=== PATIENT | female | born 1995 | race Caucasian/White ===

== ENCOUNTER 2020-03-05 07:13 | Inpatient (IN) ==
[2020-03-05] MEDS ORDERED: OXYTOCIN 30 UNITS/500 ML BAG IV PRN ×2 (07:32)
--- NOTE | 2020-03-05 07:36 | History & Physical Report ---
Date of Service March 05, 2020 Assessment & Plan (1) Prolonged , antepartum: Induction for post dates. GBS neg. Start Pitocin. 7-8 lbs History of Present Illness Primary Care Provider: NO PCP 41 week induction who received cervical winter last pm. Winter fell out spontaneously. GBS - Obesity in Allergies Allergy/AdvReac Type Severity Reaction Status Date / Time No Known Allergies Allergy Mild Verified 03/04/20 19:08 Home Medications Home Medications Medication Instructions Recorded Confirmed Type prenat.vits,august,aif-ftpb-tsldg 1 tab PO DAILY 10/14/19 03/05/20 History Patient History Medical History Encounter for anatomic survey Varicella vaccine Surgical History S/P wisdom tooth extraction Family History (Updated 10/14/19 @ 08:01 by Mary Jo Bertrand) Father Hypertension Grandmother (Maternal) Diabetes Grandfather No problems noted. Grandmother (Paternal) Stroke Grandfather (Paternal) Diabetes Social History (Updated 10/14/19 @ 09:44 by Mary Jo Bertrand) Preferred Language: Finnish marital status: Single marital status details: FOB: Irvin Stroud (25) [phone] Current Living Situation: Significant Other Current Living Situation Comment: lives with FOB, 1dog, and 1 cat. FOB to change litter. current occupational status: employed current occupation: insurance representative @ [employer] Feels Safe at Home: Yes Smoking Status: Never smoker Hx Alcohol Use: No Hx Substance Use: No Physical Exam Constitutional: WD/WN, vitals as above Respiratory: normal respiratory effort, lungs clear to auscultation Cardiovascular: RRR, no murmur, no edema Genitourinary: Manual OB Exam: + cervical dilation 4 cm, + cervical effacement 70% and + station -2 OB Exam Monitor Tracing: + external FHT monitor used Results & Data Vital Signs (Past 12 Hours) Vital Signs Temp Pulse Resp BP 03/05/20 07:19 98.6 F 95 H 20 126/69 Coding Level of Care Code None Diagnoses Prolonged , antepartum O48.1
[2020-03-05 07:58] LABS: Hematocrit (blood only) 35.1 % (37-47); Hemoglobin 11.5 g/dL (12.0-16.0); Mean Corpuscular Volume 85.4 fL (80-100); Mean Platelet Volume 12.1 fL (7.4-10.4); Platelet Count 172 K/uL (130-400); RDW Coefficient of Variation 14.2 % (11.5-14.5); RDW Standard Deviation 43.8 fL (36.4-46.3); Red Blood Count 4.11 M/uL (4.2-5.4); White Blood Count 12.47 K/uL (4.8-10.8)
[2020-03-05] MEDS: LACTATED RINGER'S 1,000 ML IV PRN ×3 (08:01→20:37)
[2020-03-05 08:23] LABS: Mean Corpuscular Hgb Conc 32.8 g/dL (32-36)
[2020-03-05] MEDS: ONDANSETRON INJ 2 MG/ML 2 ML VIAL IV PRN ×2 (11:30→17:07)
[2020-03-05] MEDS ORDERED: fentaNYL citrate 100 MCG/2 ML VIAL ONE ×2 (12:26→21:41)
[2020-03-05] MEDS ORDERED: BUPIVACAINE 0.25% 30 ML VIAL ONE (12:26)
[2020-03-05] MEDS ORDERED: ePHEDrine sulfate 50 MG/ML AMP ONE (12:26)
[2020-03-05] MEDS ORDERED: fentaNYL 2MCG/ML ROPIV 1.25MG/ML 100 ML BAG EPI ONE (12:27)
--- NOTE | 2020-03-05 12:30 | Anesthesiology Consultation ---
Date of Service March 05, 2020 Assessment & Plan Chart Review Chart Review: Acceptable Risk for Labor Epidural ASA ASA2 Proposed Anesthesia Anesthesia Type: Labor Epidural Risk / Benefits Reviewed With: PT / POA / Parent / Guardian, Accepts Plan and Informed Consent Obtained History Height/Weight Height: 5 ft 5 in Weight: 118.841 kg Allergies Allergy/AdvReac Type Severity Reaction Status Date / Time No Known Allergies Allergy Mild Verified 03/04/20 19:08 Medications Home Medications Medication Instructions Recorded Confirmed Last Taken prenat.vits,august,qlo-agqg-mnhiu 1 tab PO DAILY 10/14/19 03/05/20 03/04/20 08:00 Active Medications Generic Name Dose Route Start Last Admin Trade Name Freq PRN Reason Stop Dose Admin Lactated Ringer's 1,000 mls @ 125 mls/hr 03/05/20 07:32 03/05/20 12:22 Lr IV 03/07/20 07:31 999 mls/hr .Q8H PRN Infusion L&D Protocol Protocol Oxytocin 30 units in 500 mls @ 8 mls/hr 03/05/20 07:32 03/05/20 10:15 Pitocin IV 03/07/20 07:31 0.48 units/hr .Q24H PRN 8 mls/hr Labor Induction/Augmentation Titration Protocol 0.48 UNITS/HR Ondansetron HCl 4 mg 03/05/20 11:23 03/05/20 11:30 Zofran IV 04/04/20 11:22 4 mg Q6H PRN Administration Nausea Past Medical History Medical History Encounter for anatomic survey Varicella vaccine Exercise / Class Metabolic Activity II 4-5 Yardwork/Stairs/Walk up hill Past Family History Family History (Updated 10/14/19 @ 08:01 by Mary Jo Bertrand) Father Hypertension Grandmother (Maternal) Diabetes Grandfather No problems noted. Grandmother (Paternal) Stroke Grandfather (Paternal) Diabetes Past Surgical History Surgical History S/P wisdom tooth extraction Past Anesthesia History No Hx of Anesthesia Complications and No Family Hx of Anesthesia Complications History of PONV No Hx of PONV and No Hx of Motion Sickness Social History Smoking Status: Never smoker Do You Dip or Chew Tobacco: No Hx Alcohol Use: No Hx Substance Use: No substance use type: does not use Review of Systems denies fever/cough/ colds/ chest pain/ SOB/ LUAN Constitutional: no fever and no chills Respiratory: no cough and no dyspnea denies LUAN Cardiovascular: no chest pain and no dyspnea on exertion Physical Exam Vital Signs Last Vital Signs Temp 36.9 C 03/05/20 11:51 Pulse 96 H 03/05/20 12:54 Resp 20 03/05/20 11:51 BP 103/55 L 03/05/20 12:53 Pulse Ox 97 03/05/20 12:54 ENMT Mouth: no TMJ abnormality and no dentition abnormality Thyromental Distance: > or= 3.5 Finger Breadths Mallampati Class: II Neck neck extension not limited Respiratory normal respiratory effort; no respiratory distress Auscultation: lungs clear to auscultation bilaterally Cardiovascular Rate/Rhythm: regular rate and regular rhythm Neurologic moves all extremities Psychiatric Orientation: alert and oriented x 3 Testing Laboratory Results 03/05/20 07:42
[2020-03-05] MEDS ORDERED: ePHEDrine sulfate 50 MG/ML AMP IV PRN ×2 (13:12→22:02)
[2020-03-05] MEDS ORDERED: NALOXONE HCL 0.4 MG/1 ML VIAL/CARP IV PRN ×2 (13:12→22:02)
[2020-03-05] MEDS ORDERED: NALBUPHINE HCL INJ 10 MG/ML AMP IV PRN ×2 (13:12→22:02)
[2020-03-05] MEDS ORDERED: fentaNYL 2MCG/ML ROPIV 1.25MG/ML 100 ML BAG EPI PRN (13:12)
[2020-03-05] MEDS ORDERED: ONDANSETRON INJ 2 MG/ML 2 ML VIAL IV PRN ×2 (13:12→22:02)
[2020-03-05] MEDS ORDERED: NALOXONE HCL 1 MG in SODIUM CHLORIDE 0.9% 1000ML 1,000 ML IV PRN ×2 (13:12→22:02)
[2020-03-05] MEDS ORDERED: DiphenhydrAMINE HCL 50 MG/ML VIAL IV PRN ×2 (13:12→22:02)
--- NOTE | 2020-03-05 15:34 | Labor Progress Brief Note ---
Date of Service March 05, 2020 AROM for clear fluid. On pitocin has epidural. Cx 4cm, 70% Results & Data Vital Signs (Past 12 Hours) Vital Signs Temp Pulse Resp BP Pulse Ox 20 15:30 83 119/65 05/18/20 15:29 81 98 05/18/20 15:24 86 98 05/18/20 15:19 88 98 05/18/20 15:14 88 98 05/18/20 15:13 89 122/66 05/18/20 15:09 87 98 05/18/20 15:06 88 123/67 05/18/20 15:04 107 H 99 05/18/20 15:00 98.2 F 20 05/20 14:59 96 H 120/69 97 05/18/20 14:54 93 H 99 05/18/20 14:49 89 98 05/18/20 14:44 88 100 05/18/20 14:43 97 H 126/76 05/18/20 14:40 126 H 94 05/18/20 14:39 102 H 96 05/18/20 14:34 80 97 05/18/20 14:30 83 118/71 05/18/20 14:29 87 98 05/18/20 14:24 95 H 98 05/18/20 14:19 83 97 05/18/20 14:14 88 99 05/18/20 14:13 77 120/68 05/18/20 14:09 81 97 05/18/20 14:04 95 H 98 05/18/20 13:59 85 118/72 98 05/18/20 13:54 103 H 99 05/18/20 13:49 85 96 05/18/20 13:44 82 96 05/18/20 13:43 84 119/65 05/18/20 13:39 90 99 05/18/20 13:34 81 97 05/18/20 13:29 90 98 05/18/20 13:28 86 119/68 05/18/20 13:24 94 H 98 05/18/20 13:19 98 H 97 05/18/20 13:15 87 110/58 L 05/18/20 13:14 86 97 05/18/20 13:13 16 05/18/20 13:09 87 97 05/18/20 13:04 84 97 05/18/20 12:59 87 97 03/05/20 12:57 92 H 104/54 L 03/05/20 12:55 94 H 110/57 L 03/05/20 12:54 96 H 97 03/05/20 12:53 90 103/55 L 03/05/20 12:51 108 H 113/68 03/05/20 12:49 93 H 108/60 97 03/05/20 12:47 93 H 115/57 L 03/05/20 12:45 95 H 130/59 L 03/05/20 12:44 105 H 98 03/05/20 12:42 99 H 137/75 03/05/20 12:39 99 H 99 03/05/20 12:34 102 H 98 03/05/20 12:17 88 122/72 03/05/20 11:51 98.4 F 20 03/05/20 11:17 101 H 127/76 03/05/20 10:02 97 H 16 130/75 03/05/20 09:48 88 20 128/72 03/05/20 09:32 88 20 130/75 20 09:20 90 16 135/76 03/05/20 09:02 85 20 127/76 20 08:46 95 H 18 128/80 0520 08:18 98.6 F 95 H 20 126/69 0520 07:19 98.6 F 95 H 20 126/69 Coding Level of Care Code None
--- NOTE | 2020-03-05 19:16 | Labor Progress Brief Note ---
Date of Service March 05, 2020 Cx still 4, 90% Minimal progress all day from initial check. IUPC placed. Results & Data Vital Signs (Past 12 Hours) Vital Signs Temp Pulse Resp BP Pulse Ox 20 19:09 86 99 05/18/20 19:04 103 H 96 05/18/20 18:59 84 98 05/18/20 18:58 93 H 123/63 05/18/20 18:54 97 H 100 05/18/20 18:49 101 H 100 05/18/20 18:45 92 H 129/79 0518/20 18:44 93 H 99 05/18/20 18:39 96 H 98 05/18/20 18:34 107 H 95 05/18/20 18:30 93 H 18 124/75 0518/20 18:29 90 98 05/18/20 18:28 86 94 05/18/20 18:24 96 H 99 05/18/20 18:19 90 100 05/18/20 18:17 98 H 94 0518/20 18:14 102 H 135/72 99 0518/20 18:09 91 H 98 05/18/20 18:04 94 H 99 05/18/20 18:00 90 20 135/73 0518/20 17:59 92 H 100 05/18/20 17:54 100 H 98 05/18/20 17:49 98 H 98 05/18/20 17:44 106 H 133/80 97 05/18/20 17:39 111 H 96 05/18/20 17:34 121 H 96 05/18/20 17:30 20 05/18/20 17:29 88 133/75 98 05/18/20 17:24 89 100 05/18/20 17:19 93 H 99 05/18/20 17:15 93 H 132/75 05/18/20 17:14 90 100 05/18/20 17:09 95 H 99 05/18/20 17:04 93 H 100 05/18/20 17:00 98.2 F 81 20 131/73 05/18/20 16:59 92 H 100 05/18/20 16:57 88 92 05/18/20 16:54 82 99 05/18/20 16:49 110 H 96 05/18/20 16:44 101 H 112/56 L 99 05/18/20 16:39 93 H 100 05/18/20 16:34 86 100 05/18/20 16:30 92 H 20 110/59 L 05/18/20 16:29 95 H 99 05/18/20 16:24 95 H 100 05/18/20 16:19 93 H 99 05/18/20 16:14 99 H 115/60 98 05/18/20 16:09 88 98 05/18/20 16:04 81 98 05/18/20 16:00 20 05/18/20 15:59 96 H 117/63 97 05/18/20 15:56 81 92 05/18/20 15:54 91 H 99 05/18/20 15:49 88 97 05/18/20 15:44 80 118/71 98 05/18/20 15:39 86 98 05/18/20 15:34 87 97 05/18/20 15:30 83 20 119/65 05/18/20 15:29 81 98 05/18/20 15:24 86 98 05/18/20 15:19 88 98 05/18/20 15:14 88 98 05/18/20 15:13 89 122/66 05/18/20 15:09 87 98 05/18/20 15:06 88 123/67 05/18/20 15:04 107 H 99 05/18/20 15:00 98.2 F 20 05/18/20 14:59 96 H 120/69 97 05/18/20 14:54 93 H 99 05/18/20 14:49 89 98 05/18/20 14:44 88 100 05/18/20 14:43 97 H 126/76 05/18/20 14:40 126 H 94 05/18/20 14:39 102 H 96 05/18/20 14:34 80 97 05/18/20 14:30 83 118/71 05/18/20 14:29 87 98 05/18/20 14:24 95 H 98 05/18/20 14:19 83 97 05/18/20 14:14 88 99 05/18/20 14:13 77 120/68 05/18/20 14:09 81 97 05/18/20 14:04 95 H 98 05/18/20 13:59 85 118/72 98 05/18/20 13:54 103 H 99 05/18/20 13:49 85 96 05/18/20 13:44 82 96 05/18/20 13:43 84 119/65 05/18/20 13:39 90 99 05/18/20 13:34 81 97 05/18/20 13:29 90 98 05/18/20 13:28 86 119/68 05/18/20 13:24 94 H 98 05/18/20 13:19 98 H 97 05/18/20 13:15 87 110/58 L 05/18/20 13:14 86 97 05/18/20 13:13 16 05/18/20 13:09 87 97 05/18/20 13:04 84 97 05/18/20 12:59 87 97 05/18/20 12:57 92 H 104/54 L 05/18/20 12:55 94 H 110/57 L 05/18/20 12:54 96 H 97 05/18/20 12:53 90 103/55 L 05/18/20 12:51 108 H 113/68 05/18/20 12:49 93 H 108/60 97 05/18/20 12:47 93 H 115/57 L 05/18/20 12:45 95 H 130/59 L 05/18/20 12:44 105 H 98 05/18/20 12:42 99 H 137/75 05/18/20 12:39 99 H 99 05/18/20 12:34 102 H 98 05/18/20 12:17 88 122/72 05/18/20 11:51 98.4 F 20 05/18/20 11:17 101 H 127/76 05/18/20 10:02 97 H 16 130/75 05/18/20 09:48 88 20 128/72 05/18/20 09:32 88 20 130/75 05/18/20 09:20 90 16 135/76 05/18/20 09:02 85 20 127/76 05/18/20 08:46 95 H 18 128/80 05/18/20 08:18 98.6 F 95 H 20 126/69 05/18/20 07:19 98.6 F 95 H 20 126/69 Coding Level of Care Code None
--- NOTE | 2020-03-05 19:53 | Labor Progress Brief Note ---
Date of Service March 05, 2020 180-200 MVU with IUPC, CTX frequency, Q1.5-2 min. Adequate and I do not want to increase pitocin more with CTX frequency Results & Data Vital Signs (Past 12 Hours) Vital Signs Temp Pulse Resp BP Pulse Ox 1820 19:49 105 H 99 05/18/20 19:44 99 H 127/64 98 05/18/20 19:39 101 H 98 05/18/20 19:34 106 H 97 05/18/20 19:30 20 05/18/20 19:29 102 H 99 05/18/20 19:28 97 H 138/69 05/18/20 19:24 94 H 100 05/18/20 19:19 98 H 98 05/18/20 19:14 100 H 97 05/18/20 19:09 86 99 05/18/20 19:04 103 H 96 05/18/20 19:01 98.6 F 0518/20 19:00 18 05/18/20 18:59 84 98 05/18/20 18:58 93 H 123/63 0518/20 18:54 97 H 100 05/18/20 18:49 101 H 100 05/18/20 18:45 92 H 129/79 05/18/20 18:44 93 H 99 05/18/20 18:39 96 H 98 05/18/20 18:34 107 H 95 05/18/20 18:30 93 H 18 124/75 05/18/20 18:29 90 98 05/18/20 18:28 86 94 05/18/20 18:24 96 H 99 05/18/20 18:19 90 100 05/18/20 18:17 98 H 94 05/18/20 18:14 102 H 135/72 99 05/18/20 18:09 91 H 98 05/18/20 18:04 94 H 99 05/18/20 18:00 90 20 135/73 05/18/20 17:59 92 H 100 05/18/20 17:54 100 H 98 05/18/20 17:49 98 H 98 05/18/20 17:44 106 H 133/80 97 05/18/20 17:39 111 H 96 05/18/20 17:34 121 H 96 05/18/20 17:30 20 05/18/20 17:29 88 133/75 98 05/18/20 17:24 89 100 05/18/20 17:19 93 H 99 05/18/20 17:15 93 H 132/75 05/18/20 17:14 90 100 05/18/20 17:09 95 H 99 05/18/20 17:04 93 H 100 05/18/20 17:00 98.2 F 81 20 131/73 05/18/20 16:59 92 H 100 05/18/20 16:57 88 92 05/18/20 16:54 82 99 05/18/20 16:49 110 H 96 05/18/20 16:44 101 H 112/56 L 99 05/18/20 16:39 93 H 100 05/18/20 16:34 86 100 05/18/20 16:30 92 H 20 110/59 L 05/18/20 16:29 95 H 99 05/18/20 16:24 95 H 100 05/18/20 16:19 93 H 99 05/18/20 16:14 99 H 115/60 98 05/18/20 16:09 88 98 05/18/20 16:04 81 98 05/18/20 16:00 20 05/18/20 15:59 96 H 117/63 97 05/18/20 15:56 81 92 05/18/20 15:54 91 H 99 05/18/20 15:49 88 97 05/18/20 15:44 80 118/71 98 05/18/20 15:39 86 98 05/18/20 15:34 87 97 05/18/20 15:30 83 20 119/65 05/18/20 15:29 81 98 05/18/20 15:24 86 98 05/18/20 15:19 88 98 05/18/20 15:14 88 98 05/18/20 15:13 89 122/66 05/18/20 15:09 87 98 05/18/20 15:06 88 123/67 05/18/20 15:04 107 H 99 05/18/20 15:00 98.2 F 20 05/18/20 14:59 96 H 120/69 97 05/18/20 14:54 93 H 99 05/18/20 14:49 89 98 05/18/20 14:44 88 100 05/18/20 14:43 97 H 126/76 05/18/20 14:40 126 H 94 05/18/20 14:39 102 H 96 05/18/20 14:34 80 97 05/18/20 14:30 83 118/71 05/18/20 14:29 87 98 05/18/20 14:24 95 H 98 05/18/20 14:19 83 97 05/18/20 14:14 88 99 05/18/20 14:13 77 120/68 05/18/20 14:09 81 97 05/18/20 14:04 95 H 98 05/18/20 13:59 85 118/72 98 05/18/20 13:54 103 H 99 05/18/20 13:49 85 96 05/18/20 13:44 82 96 05/18/20 13:43 84 119/65 05/18/20 13:39 90 99 05/18/20 13:34 81 97 05/18/20 13:29 90 98 05/18/20 13:28 86 119/68 05/18/20 13:24 94 H 98 05/18/20 13:19 98 H 97 05/18/20 13:15 87 110/58 L 05/18/20 13:14 86 97 05/18/20 13:13 16 05/18/20 13:09 87 97 05/18/20 13:04 84 97 05/18/20 12:59 87 97 05/18/20 12:57 92 H 104/54 L 05/18/20 12:55 94 H 110/57 L 05/18/20 12:54 96 H 97 05/18/20 12:53 90 103/55 L 05/18/20 12:51 108 H 113/68 05/18/20 12:49 93 H 108/60 97 05/18/20 12:47 93 H 115/57 L 05/18/20 12:45 95 H 130/59 L 05/18/20 12:44 105 H 98 05/18/20 12:42 99 H 137/75 05/18/20 12:39 99 H 99 05/18/20 12:34 102 H 98 05/18/20 12:17 88 122/72 05/18/20 11:51 98.4 F 20 05/18/20 11:17 101 H 127/76 03/05/20 10:02 97 H 16 130/75 03/05/20 09:48 88 20 128/72 03/05/20 09:32 88 20 130/75 03/05/20 09:20 90 16 135/76 03/05/20 09:02 85 20 127/76 03/05/20 08:46 95 H 18 128/80 03/05/20 08:18 98.6 F 95 H 20 126/69 Coding Level of Care Code None
[2020-03-05] MEDS ORDERED: PROMETHAZINE HCL 12.5 MG in SODIUM CHLORIDE 0.9% 50 ML IV ONE (20:45)
--- NOTE | 2020-03-05 20:51 | Labor Progress Brief Note ---
Date of Service March 05, 2020 190-200 MVU, CTX frequency just under 2' FHR cat 1 Cx 4cm, -1, 90%. Increased moulding. We are now at 6 hours of active labor when AROM performed and adequate CTX. I have offered section. She agrees. I offered to re-check in 2 hours as well. No progress at all since 730am Results & Data Vital Signs (Past 12 Hours) Vital Signs Temp Pulse Resp BP Pulse Ox 05/18/20 20:44 116 H 100 05/18/20 20:39 109 H 100 05/18/20 20:34 106 H 100 05/18/20 20:29 103 H 130/74 100 05/18/20 20:24 103 H 100 05/18/20 20:19 108 H 99 05/18/20 20:14 107 H 134/72 99 05/18/20 20:09 116 H 98 05/18/20 20:04 96 H 97 05/18/20 20:00 20 05/18/20 19:59 109 H 130/67 98 05/18/20 19:54 101 H 99 05/18/20 19:49 105 H 99 05/18/20 19:44 99 H 127/64 98 05/18/20 19:39 101 H 98 05/18/20 19:34 106 H 97 05/18/20 19:30 20 05/18/20 19:29 102 H 99 05/18/20 19:28 97 H 138/69 05/18/20 19:24 94 H 100 05/18/20 19:19 98 H 98 05/18/20 19:14 100 H 97 05/18/20 19:09 86 99 05/18/20 19:04 103 H 96 05/18/20 19:01 98.6 F 05/18/20 19:00 18 05/18/20 18:59 84 98 05/18/20 18:58 93 H 123/63 05/18/20 18:54 97 H 100 05/18/20 18:49 101 H 100 05/18/20 18:45 92 H 129/79 05/18/20 18:44 93 H 99 05/18/20 18:39 96 H 98 05/18/20 18:34 107 H 95 05/18/20 18:30 93 H 18 124/75 05/18/20 18:29 90 98 05/18/20 18:28 86 94 05/18/20 18:24 96 H 99 05/18/20 18:19 90 100 05/18/20 18:17 98 H 94 05/18/20 18:14 102 H 135/72 99 05/18/20 18:09 91 H 98 05/18/20 18:04 94 H 99 05/18/20 18:00 90 20 135/73 05/18/20 17:59 92 H 100 05/18/20 17:54 100 H 98 05/18/20 17:49 98 H 98 05/18/20 17:44 106 H 133/80 97 05/18/20 17:39 111 H 96 05/18/20 17:34 121 H 96 05/18/20 17:30 20 05/18/20 17:29 88 133/75 98 05/18/20 17:24 89 100 05/18/20 17:19 93 H 99 05/18/20 17:15 93 H 132/75 05/18/20 17:14 90 100 05/18/20 17:09 95 H 99 05/18/20 17:04 93 H 100 05/18/20 17:00 98.2 F 81 20 131/73 05/18/20 16:59 92 H 100 05/18/20 16:57 88 92 05/18/20 16:54 82 99 05/18/20 16:49 110 H 96 05/18/20 16:44 101 H 112/56 L 99 05/18/20 16:39 93 H 100 05/18/20 16:34 86 100 05/18/20 16:30 92 H 20 110/59 L 05/18/20 16:29 95 H 99 05/18/20 16:24 95 H 100 05/18/20 16:19 93 H 99 05/18/20 16:14 99 H 115/60 98 05/18/20 16:09 88 98 05/18/20 16:04 81 98 05/18/20 16:00 20 05/18/20 15:59 96 H 117/63 97 05/18/20 15:56 81 92 05/18/20 15:54 91 H 99 05/18/20 15:49 88 97 05/18/20 15:44 80 118/71 98 05/18/20 15:39 86 98 05/18/20 15:34 87 97 05/18/20 15:30 83 20 119/65 05/18/20 15:29 81 98 05/18/20 15:24 86 98 05/18/20 15:19 88 98 05/18/20 15:14 88 98 05/18/20 15:13 89 122/66 05/18/20 15:09 87 98 05/18/20 15:06 88 123/67 05/18/20 15:04 107 H 99 05/18/20 15:00 98.2 F 20 05/18/20 14:59 96 H 120/69 97 05/18/20 14:54 93 H 99 05/18/20 14:49 89 98 05/18/20 14:44 88 100 05/18/20 14:43 97 H 126/76 05/18/20 14:40 126 H 94 05/18/20 14:39 102 H 96 05/18/20 14:34 80 97 05/18/20 14:30 83 118/71 05/18/20 14:29 87 98 05/18/20 14:24 95 H 98 05/18/20 14:19 83 97 05/18/20 14:14 88 99 05/18/20 14:13 77 120/68 05/18/20 14:09 81 97 05/18/20 14:04 95 H 98 05/18/20 13:59 85 118/72 98 05/18/20 13:54 103 H 99 05/18/20 13:49 85 96 05/18/20 13:44 82 96 05/18/20 13:43 84 119/65 05/18/20 13:39 90 99 05/18/20 13:34 81 97 05/18/20 13:29 90 98 05/18/20 13:28 86 119/68 05/18/20 13:24 94 H 98 05/18/20 13:19 98 H 97 05/18/20 13:15 87 110/58 L 05/18/20 13:14 86 97 05/18/20 13:13 16 05/18/20 13:09 87 97 05/18/20 13:04 84 97 05/18/20 12:59 87 97 05/18/20 12:57 92 H 104/54 L 05/18/20 12:55 94 H 110/57 L 03/05/20 12:54 96 H 97 03/05/20 12:53 90 103/55 L 03/05/20 12:51 108 H 113/68 03/05/20 12:49 93 H 108/60 97 03/05/20 12:47 93 H 115/57 L 03/05/20 12:45 95 H 130/59 L 03/05/20 12:44 105 H 98 03/05/20 12:42 99 H 137/75 03/05/20 12:39 99 H 99 03/05/20 12:34 102 H 98 03/05/20 12:17 88 122/72 03/05/20 11:51 98.4 F 20 03/05/20 11:17 101 H 127/76 03/05/20 10:02 97 H 16 130/75 03/05/20 09:48 88 20 128/72 03/05/20 09:32 88 20 130/75 03/05/20 09:20 90 16 135/76 03/05/20 09:02 85 20 127/76 Coding Level of Care Code None
--- NOTE | 2020-03-05 20:56 | Obstetrical Progress Note ---
Date of Service Patient wishes Section. Agree. section. The patient was counseled to the nature of the procedure including alternatives such as labor. Risks were discussed including bleeding infection injury to bowel bladder ureter vessels and even baby. Deep Vein thrombosis, pulmonary embolus discussed. Breakdown of incision reviewed. Deep vein thrombosis pulmonary embolus hernia and failure of the incision to heal were discussed Patient verbalized understanding of this and was given ample time to ask questions Increased risk of infection as in labor, obesity discussed March 05, 2020 Results & Data Vital Signs (Past 12 Hours) Vital Signs Temp Pulse Resp BP Pulse Ox 0518/20 20:54 113 H 100 05/18/20 20:49 122 H 98 05/18/20 20:44 116 H 100 05/18/20 20:39 109 H 100 05/18/20 20:34 106 H 100 05/18/20 20:30 20 05/18/20 20:29 103 H 130/74 100 05/18/20 20:24 103 H 100 05/18/20 20:19 108 H 99 05/18/20 20:14 107 H 134/72 99 05/18/20 20:09 116 H 98 05/18/20 20:04 96 H 97 05/18/20 20:00 20 05/18/20 19:59 109 H 130/67 98 05/18/20 19:54 101 H 99 05/18/20 19:49 105 H 99 05/18/20 19:44 99 H 127/64 98 05/18/20 19:39 101 H 98 05/18/20 19:34 106 H 97 05/18/20 19:30 20 05/18/20 19:29 102 H 99 05/18/20 19:28 97 H 138/69 05/18/20 19:24 94 H 100 05/18/20 19:19 98 H 98 05/18/20 19:14 100 H 97 05/18/20 19:09 86 99 05/18/20 19:04 103 H 96 05/18/20 19:01 98.6 F 05/18/20 19:00 18 05/18/20 18:59 84 98 05/18/20 18:58 93 H 123/63 05/18/20 18:54 97 H 100 05/18/20 18:49 101 H 100 05/18/20 18:45 92 H 129/79 05/18/20 18:44 93 H 99 05/18/20 18:39 96 H 98 05/18/20 18:34 107 H 95 05/18/20 18:30 93 H 18 124/75 05/18/20 18:29 90 98 05/18/20 18:28 86 94 05/18/20 18:24 96 H 99 05/18/20 18:19 90 100 05/18/20 18:17 98 H 94 05/18/20 18:14 102 H 135/72 99 05/18/20 18:09 91 H 98 05/18/20 18:04 94 H 99 05/18/20 18:00 90 20 135/73 05/18/20 17:59 92 H 100 05/18/20 17:54 100 H 98 05/18/20 17:49 98 H 98 05/18/20 17:44 106 H 133/80 97 05/18/20 17:39 111 H 96 05/18/20 17:34 121 H 96 05/18/20 17:30 20 05/18/20 17:29 88 133/75 98 05/18/20 17:24 89 100 05/18/20 17:19 93 H 99 05/18/20 17:15 93 H 132/75 05/18/20 17:14 90 100 05/18/20 17:09 95 H 99 05/18/20 17:04 93 H 100 05/18/20 17:00 98.2 F 81 20 131/73 05/18/20 16:59 92 H 100 05/18/20 16:57 88 92 05/18/20 16:54 82 99 05/18/20 16:49 110 H 96 05/18/20 16:44 101 H 112/56 L 99 05/18/20 16:39 93 H 100 05/18/20 16:34 86 100 05/18/20 16:30 92 H 20 110/59 L 05/18/20 16:29 95 H 99 05/18/20 16:24 95 H 100 05/18/20 16:19 93 H 99 05/18/20 16:14 99 H 115/60 98 05/18/20 16:09 88 98 05/18/20 16:04 81 98 05/18/20 16:00 20 05/18/20 15:59 96 H 117/63 97 05/18/20 15:56 81 92 05/18/20 15:54 91 H 99 05/18/20 15:49 88 97 05/18/20 15:44 80 118/71 98 05/18/20 15:39 86 98 05/18/20 15:34 87 97 05/18/20 15:30 83 20 119/65 05/18/20 15:29 81 98 05/18/20 15:24 86 98 05/18/20 15:19 88 98 05/18/20 15:14 88 98 05/18/20 15:13 89 122/66 05/18/20 15:09 87 98 05/18/20 15:06 88 123/67 05/18/20 15:04 107 H 99 05/18/20 15:00 98.2 F 20 05/18/20 14:59 96 H 120/69 97 05/18/20 14:54 93 H 99 05/18/20 14:49 89 98 05/18/20 14:44 88 100 05/18/20 14:43 97 H 126/76 05/18/20 14:40 126 H 94 05/18/20 14:39 102 H 96 05/18/20 14:34 80 97 05/18/20 14:30 83 118/71 05/18/20 14:29 87 98 05/18/20 14:24 95 H 98 05/18/20 14:19 83 97 05/18/20 14:14 88 99 05/18/20 14:13 77 120/68 05/18/20 14:09 81 97 05/18/20 14:04 95 H 98 05/18/20 13:59 85 118/72 98 05/18/20 13:54 103 H 99 05/18/20 13:49 85 96 05/18/20 13:44 82 96 05/18/20 13:43 84 119/65 05/18/20 13:39 90 99 05/18/20 13:34 81 97 05/18/20 13:29 90 98 05/18/20 13:28 86 119/68 05/18/20 13:24 94 H 98 05/18/20 13:19 98 H 97 05/18/20 13:15 87 110/58 L 05/18/ 13:14 86 97 03/05/20 13:13 16 03/05/20 13:09 87 97 03/05/20 13:04 84 97 03/05/20 12:59 87 97 03/05/20 12:57 92 H 104/54 L 03/05/20 12:55 94 H 110/57 L 03/05/20 12:54 96 H 97 03/05/20 12:53 90 103/55 L 03/05/20 12:51 108 H 113/68 03/05/20 12:49 93 H 108/60 97 03/05/20 12:47 93 H 115/57 L 03/05/20 12:45 95 H 130/59 L 03/05/20 12:44 105 H 98 03/05/20 12:42 99 H 137/75 03/05/20 12:39 99 H 99 03/05/20 12:34 102 H 98 03/05/20 12:17 88 122/72 03/05/20 11:51 98.4 F 20 03/05/20 11:17 101 H 127/76 03/05/20 10:02 97 H 16 130/75 03/05/20 09:48 88 20 128/72 03/05/20 09:32 88 20 130/75 03/05/20 09:20 90 16 135/76 03/05/20 09:02 85 20 127/76 PG Care Time/CCT Total # of Minutes Spent Total Time Spent with Patient: Total time spent is greater than 50% in coordination of care (as documented) at patient's floor/unit and/or counseling patient: Coding Level of Care Code None
[2020-03-05] MEDS ORDERED: LACTATED RINGER'S 1,000 ML IV SCH ×2 (21:00→22:46)
[2020-03-05] MEDS ORDERED: CEFAZOLIN 3000MG 65 ML IV SCH (21:15)
[2020-03-05] MEDS ORDERED: CITRIC ACID/SODIUM CITRATE 15 ML UDC PO SCH (21:15)
[2020-03-05] MEDS ORDERED: OXYTOCIN 10 UNITS/ML VIAL ONE (21:16)
[2020-03-05] MEDS ORDERED: MoRPHine SULFATE PF 1 MG/ML 10 ML AMP/VIAL ONE (21:24)
[2020-03-05] MEDS ORDERED: MoRPHine SULFATE PF 1 MG/ML 10 ML AMP/VIAL EPI ONE (22:02)
[2020-03-05] MEDS ORDERED: NALOXONE HCL 0.08 MG in SYRINGE 1.8 ML IV PRN (22:02)
[2020-03-05] MEDS ORDERED: PROMETHAZINE HCL 25 MG in SODIUM CHLORIDE 0.9% 50 ML IV PRN (22:02)
[2020-03-05] MEDS ORDERED: MoRPHine SULFATE 2 MG/ML CARP IV PRN (22:02)
[2020-03-05] MEDS ORDERED: LACTATED RINGER'S 500 ML IV PRN (22:02)
[2020-03-05] MEDS ORDERED: NO NARCOTICS OR SEDATIVES SCH (22:15)
[2020-03-05] MEDS ORDERED: DC INTRASPINAL MORPHINE SCH (22:15)
[2020-03-05] MEDS ORDERED: SODIUM CHLORIDE 0.9% 1000ML 1,000 ML IV SCH (22:15)
[2020-03-05] MEDS ORDERED: ONDANSETRON INJ 2 MG/ML 2 ML VIAL ONE (22:31)
--- NOTE | 2020-03-05 22:31 | Operative Report ---
PG Post Operative Report Pre & Post Diagnosis Operation Date: 03/05/20 21:00 Pre-Op Diagnosis: primary for failure to progress Post-Op Diagnosis: same I identified the patient and participated in the time-out.: Yes Procedure Operation Date: 03/05/20 21:00 Actual Procedures p Section in LD for failure to progress - Yue Montanez MD, FACOG Surgeon Yue Montanez MD, FACOG Tip Finisher Alivia Driscoll RN Estimated Blood Loss 600 Findings Consistent with Post-Op Diagnosis Specimens cord gases, blood Description of Procedure Regional anesthetic was given by anesthesia patient had a García catheter inserted by nursing patient was prepped and draped in supine position with a leftward tilt preoperative antibiotics were given timeout performed Pickups with teeth were used to test the skin site and it was found adequate for incision scalpel used to make a Pfannenstiel incision cutting down through subcutaneous fat through the fascia fascia was then dissected laterally with the curved Mejia's fascia was released superiorly and inferiorly from the rectus muscles with the curved Mejia scissors, rectus muscle split peritoneal cavity entered in a superior location. Opening enlarged to allow exposure bladder retractor placed Metzenbaums used to dissect away the bladder flap low segment transverse incision made on the uterus with scalpel entry was done bluntly with the bar machine operator production's finger hysterotomy incision extended with the bar machine operator production's finger in the usual fashion baby was delivered then by flexion of the head, nuchal cord x 1 which was clamped and cut prior to delivery of body and pressure from the assistant shift supervisor on the abdomen mouth and then nares were suctioned baby was then delivered fully without difficulty without excessive force live vigorous infant cord clamped and cut cord gases obtained cord blood obtained placenta removed manually within ensured all placenta removed with a moist lap sponge uterus exteriorized IV Pitocin had been started by anesthesia and uterine tone improved. The uterus was closed in 2 layers first layer and 0 Monocryl running locked second layer 0 Monocryl nonlocked after generous irrigation and suction of the cul-de-sac and bladder flap regions hemostasis was excellent uterus was placed back in the peritoneal cavity and hemostasis was excellent rectus muscles were inspected and found to be dry fascia closed with 0 Vicryl subcutaneous fat closed with 3-0 Vicryl prior to this subcutaneous fat was irrigated skin closed with 4-0 subcuticular Monocryl incision RHIANNON dressing urine was clear at the end of the procedure I attest to the content of the Intraoperative Record and any orders documented therein. Any exceptions are noted below.
[2020-03-05 22:43] LABS: Base Excess Cord Arterial Bld -3.7 mEq/L (-9-1.8); CO2 Cord Arterial Blood 59 mmHg (39.1-73.5); HCO3 Cord Arterial Blood 25 mmol/L (19.7-28.5); PO2 Cord Arterial Blood 15 mmHg (4.1-31.7); pH Cord Arterial Blood 7.24 (7.1-7.38)
[2020-03-05] MEDS ORDERED: DIPHTHERIA/TETANUS/PERTUSSIS 0.5 ML SYR/VIAL IM ONE (22:46)
[2020-03-05] MEDS ORDERED: SUPERCREAM 0.870% 15 GM JAR EXT PRN (22:46)
[2020-03-05] MEDS ORDERED: SENNA 8.6 MG TAB PO PRN (22:46)
[2020-03-05] MEDS ORDERED: MAGNESIUM HYDROXIDE SUSP 30 ML UDC PO PRN (22:46)
[2020-03-05] MEDS ORDERED: BENZOCAINE 20% AER SPR 82.5 GM CAN EXT PRN (22:46)
[2020-03-05] MEDS ORDERED: HYDROCORTISONE ACETATE 25 MG SUPP PR PRN (22:46)
[2020-03-05 22:49] LABS: Base Excess Cord Venous Blood -3.2 mEq/L (-7.7-1.9); Cord Venous Blood HCO3 23 mmol/L (18.4-26.8); Cord Venous Blood PCO2 46 mmHg (30.4-57.2); Cord Venous Blood PO2 25 mmHg (14.1-43.3); Cord Venous Blood pH 7.32 (7.20-7.44); Oxygen Sat Cord Arterial Blood < 60.0 % (<60)
[2020-03-05 22:50] LABS: O2 Saturation Cord Venous Bld < 68.0 % (<68)
--- NOTE | 2020-03-05 23:14 | Anesthesiology Progress Note ---
Date of Service March 05, 2020 Anesthesia Post Procedure Vital Signs Vital Signs: Temp Pulse Resp BP Pulse Ox 20 23:11 115 H 118/56 L 0518/20 23:08 118 H 100 05/18/20 23:03 116 H 140/65 100 05/18/20 22:58 122 H 97 05/18/20 22:53 119 H 94/52 L 97 05/18/20 22:48 121 H 95 05/18/20 22:43 123 H 92 05/18/20 22:40 110 H 104/53 L 0518/20 22:38 117 H 100 05/18/20 21:24 112 H 100 05/18/20 21:19 109 H 100 05/18/20 21:14 104 H 99 05/18/20 21:09 102 H 100 05/18/20 21:04 108 H 100 05/18/20 21:00 37.2 C 104 H 22 137/74 05/18/20 20:59 110 H 99 05/18/20 20:54 113 H 100 05/18/20 20:49 122 H 98 05/18/20 20:44 116 H 100 05/18/20 20:39 109 H 100 05/18/20 20:34 106 H 100 05/18/20 20:30 20 05/18/20 20:29 103 H 130/74 100 05/18/20 20:24 103 H 100 05/18/20 20:19 108 H 99 05/18/20 20:14 107 H 134/72 99 05/18/20 20:09 116 H 98 05/18/20 20:04 96 H 97 05/18/20 20:00 20 05/18/20 19:59 109 H 130/67 98 05/18/20 19:54 101 H 99 05/18/20 19:49 105 H 99 05/18/20 19:44 99 H 127/64 98 05/18/20 19:39 101 H 98 05/18/20 19:34 106 H 97 05/18/20 19:30 20 05/18/20 19:29 102 H 99 05/18/20 19:28 97 H 138/69 05/18/20 19:24 94 H 100 05/18/20 19:19 98 H 98 05/18/20 19:14 100 H 97 05/18/20 19:09 86 99 05/18/20 19:04 103 H 96 05/18/20 19:01 37.0 C 05/18/20 19:00 18 05/18/20 18:59 84 98 05/18/20 18:58 93 H 123/63 05/18/20 18:54 97 H 100 05/18/20 18:49 101 H 100 05/18/20 18:45 92 H 129/79 05/18/20 18:44 93 H 99 05/18/20 18:39 96 H 98 05/18/20 18:34 107 H 95 05/18/20 18:30 93 H 18 124/75 05/18/20 18:29 90 98 05/18/20 18:28 86 94 05/18/20 18:24 96 H 99 05/18/20 18:19 90 100 05/18/20 18:17 98 H 94 05/18/20 18:14 102 H 135/72 99 05/18/20 18:09 91 H 98 05/18/20 18:04 94 H 99 05/18/20 18:00 90 20 135/73 05/18/20 17:59 92 H 100 05/18/20 17:54 100 H 98 05/18/20 17:49 98 H 98 05/18/20 17:44 106 H 133/80 97 05/18/20 17:39 111 H 96 05/18/20 17:34 121 H 96 05/18/20 17:30 20 05/18/20 17:29 88 133/75 98 05/18/20 17:24 89 100 05/18/20 17:19 93 H 99 05/18/20 17:15 93 H 132/75 05/18/20 17:14 90 100 05/18/20 17:09 95 H 99 05/18/20 17:04 93 H 100 05/18/20 17:00 36.8 C 81 20 131/73 05/18/20 16:59 92 H 100 05/18/20 16:57 88 92 05/18/20 16:54 82 99 05/18/20 16:49 110 H 96 05/18/20 16:44 101 H 112/56 L 99 05/18/20 16:39 93 H 100 05/18/20 16:34 86 100 05/18/20 16:30 92 H 20 110/59 L 05/18/20 16:29 95 H 99 05/18/20 16:24 95 H 100 05/18/20 16:19 93 H 99 05/18/20 16:14 99 H 115/60 98 05/18/20 16:09 88 98 05/18/20 16:04 81 98 05/18/20 16:00 20 05/18/20 15:59 96 H 117/63 97 05/18/20 15:56 81 92 05/18/20 15:54 91 H 99 05/18/20 15:49 88 97 05/18/20 15:44 80 118/71 98 05/18/20 15:39 86 98 05/18/20 15:34 87 97 05/18/20 15:30 83 20 119/65 05/18/20 15:29 81 98 05/18/20 15:24 86 98 05/18/20 15:19 88 98 05/18/20 15:14 88 98 05/18/20 15:13 89 122/66 05/18/20 15:09 87 98 05/18/20 15:06 88 123/67 05/18/20 15:04 107 H 99 05/18/20 15:00 36.8 C 20 05/18/20 14:59 96 H 120/69 97 05/18/20 14:54 93 H 99 05/18/20 14:49 89 98 05/18/20 14:44 88 100 05/18/20 14:43 97 H 126/76 05/18/20 14:40 126 H 94 05/18/20 14:39 102 H 96 05/18/20 14:34 80 97 05/18/20 14:30 83 118/71 05/18/20 14:29 87 98 05/18/20 14:24 95 H 98 05/18/20 14:19 83 97 05/18/20 14:14 88 99 05/18/20 14:13 77 120/68 05/18/20 14:09 81 97 05/18/20 14:04 95 H 98 05/18/20 13:59 85 118/72 98 05/18/20 13:54 103 H 99 05/18/20 13:49 85 96 05/18/20 13:44 82 96 03/05/20 13:43 84 119/65 03/05/20 13:39 90 99 03/05/20 13:34 81 97 03/05/20 13:29 90 98 03/05/20 13:28 86 119/68 03/05/20 13:24 94 H 98 03/05/20 13:19 98 H 97 03/05/20 13:15 87 110/58 L 03/05/20 13:14 86 97 03/05/20 13:13 16 03/05/20 13:09 87 97 03/05/20 13:04 84 97 03/05/20 12:59 87 97 03/05/20 12:57 92 H 104/54 L 03/05/20 12:55 94 H 110/57 L 03/05/20 12:54 96 H 97 03/05/20 12:53 90 103/55 L 03/05/20 12:51 108 H 113/68 03/05/20 12:49 93 H 108/60 97 03/05/20 12:47 93 H 115/57 L 03/05/20 12:45 95 H 130/59 L 03/05/20 12:44 105 H 98 03/05/20 12:42 99 H 137/75 03/05/20 12:39 99 H 99 03/05/20 12:34 102 H 98 03/05/20 12:17 88 122/72 03/05/20 11:51 36.9 C 20 03/05/20 11:17 101 H 127/76 03/05/20 10:02 97 H 16 130/75 03/05/20 09:48 88 20 128/72 03/05/20 09:32 88 20 130/75 03/05/20 09:20 90 16 135/76 03/05/20 09:02 85 20 127/76 03/05/20 08:46 95 H 18 128/80 03/05/20 08:18 37 C 95 H 20 126/69 03/05/20 07:19 37 C 95 H 20 126/69 Pain Intensity Abdomen: Pain Intensity: 4 Transfer of Care Handoff Completed per policy Notes Mental Status: alert / awake / arousable and participated in evaluation Patient Amnestic to Procedure: Yes Nausea / Vomiting: adequately controlled Pain: adequately controlled Airway Patency, RR, SpO2: stable & adequate BP & HR: stable & adequate Hydration State: stable & adequate Anesthetic Complications: no major complications apparent and Pt Satisfied with anesthetic care
[2020-03-05] MEDS: OXYTOCIN 20 UNITS in LACTATED RINGER'S 1,000 ML IV SCH (23:33)
[2020-03-05] MEDS: KETOROLAC 30 MG/ML VIAL IV PRN (23:41)
--- NOTE | 2020-03-06 05:51 | Obstetrical Progress Note ---
Date of Service March 06, 2020 Assessment & Plan Admission and Anticipated Discharge Date Admission Date: March 05, 2020 24 yo s/p pCS for failure to progress, complicated by obesity - POD# 1 - GBS negative, Blood Type O+ - Hgb 9.2 - Winter in place, on a liquid diet - Pain well controlled - Routine post operative care - After discharge will have 6 week followup with Liss[facility]. Supervising Physician Co-Signing Physician Notes Resident Physician Supervision Note: I was present with [Randy] during the history and exam. I discussed the case with the resident and agree with the findings and plan as documented in the note. Any exceptions or clarifications are listed here: [None] Documented By: Yue Montanez MD, FACOG Subjective Guillermina Daniels is doing well this morning with her pain well controlled. She has not been able to walk since she still has a winter. She has not passed gas, but has been eating a liquid diet. She is and she describes as, "decent". She was without pain this morning. She does not have much bleeding. Review of Systems Review of Systems: Denies fever, chills, sweats. Denies shortness of breath, difficulty breathing, palpitations. admits feeling indigestion. Denies breast pain. Denies dysuria. Denies headache. Physical Exam Physical Exam: General: Alert, oriented. No acute distress. Cardiac: Regular rate and rhythm, no murmurs/rubs/gallops. Respiratory: Symmetrical chest rise. No respiratory distress. Abdomen: Soft, nontender, nondistended. Bowel sounds present. Uterus: Uterine fundus firm, palpable 1 cm below umbilicus. Lower Extremities: No lower extremity edema or swelling. No deep calf pain. Amanda's negative bilaterally. surgical incision w/ dressing intact, clean, dry. No warmth, erythema, discharge, around dressing. Results & Data ([facility]) Vital Signs (Past 12 Hours) Vital Signs Temp Pulse Pulse Resp BP BP Pulse Ox 03/06/20 04:15 37.0 C 116 H 18 131/82 99 03/06/20 04:00 18 98 03/06/20 03:00 18 97 03/06/20 02:00 18 99 03/06/20 01:30 36.7 C 93 H 18 113/72 98 05/19/20 00:59 105 H 132/58 L 05/19/20 00:58 104 H 97 05/19/20 00:53 111 H 97 05/19/20 00:48 111 H 96 05/19/20 00:43 110 H 96 05/19/20 00:38 108 H 96 05/19/20 00:33 108 H 146/74 H 97 05/19/20 00:28 107 H 98 05/19/20 00:23 106 H 97 05/19/20 00:18 105 H 97 05/19/20 00:13 101 H 97 05/19/20 00:08 95 H 98 05/19/20 00:03 96 H 97 05/18/20 23:58 96 H 97 05/18/20 23:57 100 H 125/69 05/18/20 23:53 98 H 98 05/18/20 23:51 97 H 140/61 05/18/20 23:48 100 H 99 05/18/20 23:43 104 H 100 05/18/20 23:40 97 H 118/76 05/18/20 23:38 102 H 100 05/18/20 23:33 106 H 125/62 100 05/18/20 23:30 103 H 136/60 05/18/20 23:28 100 H 100 05/18/20 23:23 97 H 128/56 L 100 05/18/20 23:21 96 H 142/83 H 05/18/20 23:18 104 H 100 05/18/20 23:13 122 H 100 05/18/20 23:11 115 H 118/56 L 05/18/20 23:08 118 H 100 05/18/20 23:03 116 H 140/65 100 05/18/20 22:58 122 H 97 05/18/20 22:53 119 H 94/52 L 97 05/18/20 22:48 121 H 95 05/18/20 22:43 123 H 92 05/18/20 22:40 110 H 104/53 L 05/18/20 22:38 117 H 100 05/18/20 21:24 112 H 100 05/18/20 21:19 109 H 100 05/18/20 21:14 104 H 99 05/18/20 21:09 102 H 100 05/18/20 21:04 108 H 100 05/18/20 21:00 37.2 C 104 H 22 137/74 05/18/20 20:59 110 H 99 05/18/20 20:54 113 H 100 05/18/20 20:49 122 H 98 05/18/20 20:44 116 H 100 05/18/20 20:39 109 H 100 05/18/20 20:34 106 H 100 05/18/20 20:30 20 05/18/20 20:29 103 H 130/74 100 05/18/20 20:24 103 H 100 05/18/20 20:19 108 H 99 05/18/20 20:14 107 H 134/72 99 05/18/20 20:09 116 H 98 05/18/20 20:04 96 H 97 05/18/20 20:00 20 05/18/20 19:59 109 H 130/67 98 05/18/20 19:54 101 H 99 05/18/20 19:49 105 H 99 05/18/20 19:44 99 H 127/64 98 05/18/20 19:39 101 H 98 05/18/20 19:34 106 H 97 05/18/20 19:30 20 05/18/20 19:29 102 H 99 05/18/20 19:28 97 H 138/69 05/18/20 19:24 94 H 100 05/18/20 19:19 98 H 98 05/18/20 19:14 100 H 97 05/18/20 19:09 86 99 05/18/20 19:04 103 H 96 05/18/20 19:01 37.0 C 05/18/20 19:00 18 05/18/20 18:59 84 98 05/18/20 18:58 93 H 123/63 05/18/20 18:54 97 H 100 05/18/20 18:49 101 H 100 05/18/20 18:45 92 H 129/79 05/18/20 18:44 93 H 99 05/18/20 18:39 96 H 98 05/18/20 18:34 107 H 95 05/18/20 18:30 93 H 18 124/75 05/18/20 18:29 90 98 05/18/20 18:28 86 94 05/18/20 18:24 96 H 99 05/18/20 18:19 90 100 03/05/20 18:17 98 H 94 03/05/20 18:14 102 H 135/72 99 03/05/20 18:09 91 H 98 03/05/20 18:04 94 H 99 03/05/20 18:00 90 20 135/73 03/05/20 17:59 92 H 100 03/05/20 17:54 100 H 98 Resident Activity Tracking Resident Involvement: Resident Care Provided Care Provided: Adult Hospital Medicine
[2020-03-06 06:26] LABS: Hematocrit (blood only) 28.2 % (37-47); Hemoglobin 9.2 g/dL (12.0-16.0); Mean Corpuscular Hgb Conc 32.6 g/dL (32-36); Mean Platelet Volume 11.7 fL (7.4-10.4); Platelet Count 152 K/uL (130-400); RDW Coefficient of Variation 14.3 % (11.5-14.5); RDW Standard Deviation 44.8 fL (36.4-46.3); Red Blood Count 3.28 M/uL (4.2-5.4); White Blood Count 16.27 K/uL (4.8-10.8)
[2020-03-06 06:53] LABS: Basophils # (auto) 0.01 K/uL (0-0.2); Basophils % (auto) 0.1 %; Eosinophils # (auto) 0.01 K/uL (0-0.5); Eosinophils % (auto) 0.1 %; Immature Granulocytes # (auto) 0.06 K/uL (0.00-0.02); Immature Granulocytes % (auto) 0.4 %; Lymphocytes # (auto) 1.12 K/uL (1.2-3.4); Lymphocytes % (auto) 6.9 %; Monocytes # (auto) 1.13 K/uL (0.11-0.59); Monocytes % (auto) 6.9 %; Neutrophils # (auto) 13.94 K/uL (1.4-6.5); Neutrophils % (auto) 85.6 %; RBC Morphology Unremarkable
[2020-03-06] MEDS ORDERED: LACTATED RINGER'S 1,000 ML IV ONE (07:48)
[2020-03-06] MEDS: PRENATAL VITAMIN 1 TAB PO SCH (09:00)
[2020-03-06] MEDS ORDERED: NON-FORMULARY MEDICATION (Prenat.Vits,Cal,Min-Iron-Folic 1 TAB) PO SCH (09:00)
[2020-03-06] MEDS: SIMETHICONE 80 MG CHEW PO SCH ×3 (09:00→19:31)
[2020-03-06] MEDS: DOCUSATE SODIUM 100 MG CAP PO SCH (09:01)
[2020-03-06] MEDS: OXYTOCIN 20 UNITS in LACTATED RINGER'S 1,000 ML IV SCH (09:51)
--- NOTE | 2020-03-06 11:18 | Anesthesiology Progress Note ---
Date of Service March 06, 2020 Anesthesia Post Procedure Vital Signs Vital Signs: Temp Pulse Pulse Resp BP BP Pulse Ox 03/06/20 10:15 18 97 03/06/20 09:15 18 98 03/06/20 08:15 18 96 03/06/20 08:00 36.8 C 121 H 18 110/75 97 03/06/20 07:15 18 96 03/06/20 07:00 18 97 03/06/20 06:00 18 96 03/06/20 05:00 18 97 03/06/20 04:15 37.0 C 116 H 18 131/82 99 03/06/20 04:00 18 98 03/06/20 03:00 18 97 03/06/20 02:00 18 99 03/06/20 01:30 36.7 C 93 H 18 113/72 98 03/06/20 00:59 105 H 132/58 L 03/06/20 00:58 104 H 97 03/06/20 00:53 111 H 97 03/06/20 00:48 111 H 96 03/06/20 00:43 110 H 96 03/06/20 00:38 108 H 96 03/06/20 00:33 108 H 146/74 H 97 03/06/20 00:28 107 H 98 03/06/20 00:23 106 H 97 03/06/20 00:18 105 H 97 03/06/20 00:13 101 H 97 03/06/20 00:08 95 H 98 03/06/20 00:03 96 H 97 03/05/20 23:58 96 H 97 03/05/20 23:57 100 H 125/69 03/05/20 23:53 98 H 98 03/05/20 23:51 97 H 140/61 03/05/20 23:48 100 H 99 03/05/20 23:43 104 H 100 03/05/20 23:40 97 H 118/76 03/05/20 23:38 102 H 100 03/05/20 23:33 106 H 125/62 100 03/05/20 23:30 103 H 136/60 03/05/20 23:28 100 H 100 03/05/20 23:23 97 H 128/56 L 100 03/05/20 23:21 96 H 142/83 H 03/05/20 23:18 104 H 100 05/18/20 23:13 122 H 100 05/18/20 23:11 115 H 118/56 L 05/18/20 23:08 118 H 100 05/18/20 23:03 116 H 140/65 100 05/18/20 22:58 122 H 97 05/18/20 22:53 119 H 94/52 L 97 05/18/20 22:48 121 H 95 05/18/20 22:43 123 H 92 05/18/20 22:40 110 H 104/53 L 05/18/20 22:38 117 H 100 05/18/20 21:24 112 H 100 05/18/20 21:19 109 H 100 05/18/20 21:14 104 H 99 05/18/20 21:09 102 H 100 05/18/20 21:04 108 H 100 05/18/20 21:00 37.2 C 104 H 22 137/74 05/18/20 20:59 110 H 99 05/18/20 20:54 113 H 100 05/18/20 20:49 122 H 98 05/18/20 20:44 116 H 100 05/18/20 20:39 109 H 100 05/18/20 20:34 106 H 100 05/18/20 20:30 20 05/18/20 20:29 103 H 130/74 100 05/18/20 20:24 103 H 100 05/18/20 20:19 108 H 99 05/18/20 20:14 107 H 134/72 99 05/18/20 20:09 116 H 98 05/18/20 20:04 96 H 97 05/18/20 20:00 20 05/18/20 19:59 109 H 130/67 98 05/18/20 19:54 101 H 99 05/18/20 19:49 105 H 99 05/18/20 19:44 99 H 127/64 98 05/18/20 19:39 101 H 98 05/18/20 19:34 106 H 97 05/18/20 19:30 20 05/18/20 19:29 102 H 99 05/18/20 19:28 97 H 138/69 05/18/20 19:24 94 H 100 05/18/20 19:19 98 H 98 05/18/20 19:14 100 H 97 05/18/20 19:09 86 99 05/18/20 19:04 103 H 96 05/18/20 19:01 37.0 C 05/18/20 19:00 18 05/18/20 18:59 84 98 05/18/20 18:58 93 H 123/63 05/18/20 18:54 97 H 100 05/18/20 18:49 101 H 100 05/18/20 18:45 92 H 129/79 05/18/20 18:44 93 H 99 05/18/20 18:39 96 H 98 05/18/20 18:34 107 H 95 05/18/20 18:30 93 H 18 124/75 05/18/20 18:29 90 98 05/18/20 18:28 86 94 05/18/20 18:24 96 H 99 05/18/20 18:19 90 100 05/18/20 18:17 98 H 94 05/18/20 18:14 102 H 135/72 99 05/18/20 18:09 91 H 98 05/18/20 18:04 94 H 99 05/18/20 18:00 90 20 135/73 05/18/20 17:59 92 H 100 05/18/20 17:54 100 H 98 05/18/20 17:49 98 H 98 05/18/20 17:44 106 H 133/80 97 05/18/20 17:39 111 H 96 05/18/20 17:34 121 H 96 05/18/20 17:30 20 05/18/20 17:29 88 133/75 98 05/18/20 17:24 89 100 05/18/20 17:19 93 H 99 05/18/20 17:15 93 H 132/75 05/18/20 17:14 90 100 05/18/20 17:09 95 H 99 05/18/20 17:04 93 H 100 05/18/20 17:00 36.8 C 81 20 131/73 05/18/20 16:59 92 H 100 05/18/20 16:57 88 92 05/18/20 16:54 82 99 05/18/20 16:49 110 H 96 05/18/20 16:44 101 H 112/56 L 99 05/18/20 16:39 93 H 100 05/18/20 16:34 86 100 05/18/20 16:30 92 H 20 110/59 L 05/18/20 16:29 95 H 99 05/18/20 16:24 95 H 100 05/18/20 16:19 93 H 99 05/18/20 16:14 99 H 115/60 98 05/18/20 16:09 88 98 05/18/20 16:04 81 98 05/18/20 16:00 20 05/18/20 15:59 96 H 117/63 97 05/18/20 15:56 81 92 05/18/20 15:54 91 H 99 05/18/20 15:49 88 97 05/18/20 15:44 80 118/71 98 05/18/20 15:39 86 98 05/18/20 15:34 87 97 05/18/20 15:30 83 20 119/65 05/18/20 15:29 81 98 05/18/20 15:24 86 98 05/18/20 15:19 88 98 05/18/20 15:14 88 98 05/18/20 15:13 89 122/66 05/18/20 15:09 87 98 05/18/20 15:06 88 123/67 05/18/20 15:04 107 H 99 05/18/20 15:00 36.8 C 20 05/18/20 14:59 96 H 120/69 97 05/18/20 14:54 93 H 99 05/18/20 14:49 89 98 05/18/20 14:44 88 100 05/18/20 14:43 97 H 126/76 05/18/20 14:40 126 H 94 05/18/20 14:39 102 H 96 05/18/20 14:34 80 97 05/18/20 14:30 83 118/71 05/18/20 14:29 87 98 05/18/20 14:24 95 H 98 05/18/20 14:19 83 97 05/18/20 14:14 88 99 05/18/20 14:13 77 120/68 05/18/20 14:09 81 97 05/18/20 14:04 95 H 98 05/18/20 13:59 85 118/72 98 05/18/20 13:54 103 H 99 05/18/20 13:49 85 96 05/18/20 13:44 82 96 05/18/20 13:43 84 119/65 05/18/20 13:39 90 99 03/05/20 13:34 81 97 03/05/20 13:29 90 98 03/05/20 13:28 86 119/68 03/05/20 13:24 94 H 98 03/05/20 13:19 98 H 97 03/05/20 13:15 87 110/58 L 03/05/20 13:14 86 97 03/05/20 13:13 16 03/05/20 13:09 87 97 03/05/20 13:04 84 97 03/05/20 12:59 87 97 03/05/20 12:57 92 H 104/54 L 03/05/20 12:55 94 H 110/57 L 03/05/20 12:54 96 H 97 03/05/20 12:53 90 103/55 L 03/05/20 12:51 108 H 113/68 03/05/20 12:49 93 H 108/60 97 03/05/20 12:47 93 H 115/57 L 03/05/20 12:45 95 H 130/59 L 03/05/20 12:44 105 H 98 03/05/20 12:42 99 H 137/75 03/05/20 12:39 99 H 99 03/05/20 12:34 102 H 98 03/05/20 12:17 88 122/72 03/05/20 11:51 36.9 C 20 Pain Intensity Abdomen: Pain Intensity: 1 Transfer of Care Handoff Completed per policy Notes Mental Status: alert / awake / arousable and participated in evaluation Nausea / Vomiting: adequately controlled Pain: adequately controlled Airway Patency, RR, SpO2: stable & adequate BP & HR: stable & adequate Hydration State: stable & adequate Neuraxial Anesthesia: was administered and sensory block resolved Anesthetic Complications: no major complications apparent and Pt Satisfied with anesthetic care Notes: Patient denies headache this morning. Has been up walking without weakness or residual numbness. Patient encouraged to contact anesthesia for any concerns or new headache
[2020-03-06] MEDS: KETOROLAC 30 MG/ML VIAL IV PRN (14:09)
[2020-03-06] MEDS ORDERED: MEPERIDINE HCL 50 MG/ML CARP IV PRN (16:03)
[2020-03-06] MEDS ORDERED: PROMETHAZINE HCL 25 MG in SODIUM CHLORIDE 0.9% 50 ML IV PRN (16:03)
[2020-03-06] MEDS ORDERED: DiphenhydrAMINE HCL 50 MG/ML VIAL IV PRN (16:03)
[2020-03-06] MEDS ORDERED: KETOROLAC 30 MG/ML VIAL IV PRN (16:03)
[2020-03-06] MEDS ORDERED: ONDANSETRON INJ 2 MG/ML 2 ML VIAL IV PRN (16:03)
[2020-03-06] MEDS ORDERED: bisacodyL 5 MG TABEC PO SCH (20:00)
[2020-03-06] MEDS: OXYCODONE/ACETAMINOPHEN 5mg/325mg TAB PO PRN (21:10)
[2020-03-06] MEDS: IBUPROFEN 600 MG TAB PO PRN (21:10)
--- NOTE | 2020-03-07 05:59 | Obstetrical Progress Note ---
Date of Service March 07, 2020 Assessment & Plan Admission and Anticipated Discharge Date Admission Date: March 05, 2020 24 yo s/p pCS for failure to progress @ 41 weeks, complicated by obesity - POD# 2 - GBS negative, Blood Type O+ - Pain well controlled - Routine post-operative care - After discharge will have 6 week follow up with Dr. Montanez. Supervising Physician Co-Signing Physician Notes Patient seen and evaluated and agree with the above findings and plan. Day 2 LTCS. Doing well. Routine care Subjective Guillermina Weight is doing well this morning with her pain well controlled 3/10 and improved with medication. She has been walking, voiding, passing gas and eating a regular diet. Her bleeding is described as, "light". is described as, "decent". Review of Systems Review of Systems: Denies fever, chills, sweats. Denies shortness of breath, difficulty breathing, palpitations. admits feeling indigestion. Denies breast pain. Denies dysuria. Denies headache. Physical Exam Physical Exam: General: Alert, oriented. No acute distress. Cardiac: Regular rate and rhythm, no murmurs/rubs/gallops. Respiratory: Symmetrical chest rise. No respiratory distress. Abdomen: Soft, nontender, nondistended. Bowel sounds present. Uterus: Uterine fundus firm, palpable 1 cm below umbilicus. Lower Extremities: No lower extremity edema or swelling. No deep calf pain. Amanda's negative bilaterally. surgical incision w/ dressing intact, clean, dry. No warmth, erythema, discharge, around dressing. Results & Data ([facility]) Vital Signs (Past 12 Hours) Vital Signs Temp Pulse Pulse Resp BP Pulse Ox 03/06/20 23:20 37.0 C 96 H 16 118/77 96 03/06/20 20:15 37.2 C 102 H 18 134/87 98 Resident Activity Tracking Resident Involvement: Resident Care Provided Care Provided: Adult [facility]
[2020-03-07] MEDS: IBUPROFEN 600 MG TAB PO PRN ×3 (06:03→20:13)
[2020-03-07] MEDS: OXYCODONE/ACETAMINOPHEN 5mg/325mg TAB PO PRN ×3 (06:04→20:13)
[2020-03-07 06:53] LABS: Hematocrit (blood only) 26.8 % (37-47); Hemoglobin 8.8 g/dL (12.0-16.0)
[2020-03-07] MEDS: DOCUSATE SODIUM 100 MG CAP PO SCH ×3 (08:22→20:13)
[2020-03-07] MEDS: SIMETHICONE 80 MG CHEW PO SCH ×5 (08:23→20:13)
[2020-03-07] MEDS: PRENATAL VITAMIN 1 TAB PO SCH (08:23)
[2020-03-07] MEDS ORDERED: bisacodyL 10 MG SUPP PR PRN (22:27)
--- NOTE | 2020-03-08 05:54 | Obstetrical Progress Note ---
Date of Service March 08, 2020 Assessment & Plan Admission and Anticipated Discharge Date Admission Date: March 05, 2020 24 yo s/p pCS for failure to progress @ 41 weeks, complicated by obesity - POD# 3 - GBS negative, Blood Type O+ - Pain well controlled - Routine post-operative care - After discharge will have 6 week follow up with Dr. Montanez. Supervising Physician Co-Signing Physician Notes Resident Physician Supervision Note: I was present with Dr. Lund during the history and exam. I discussed the case with the resident and agree with the findings and plan as documented in the note. Any exceptions or clarifications are listed here: Patient desires d/c. RHIANNON dressing to be removed POD #7. Pt instructed on how to do it. F/U in 6 week for pp check Documented By: Ronak Marrero Jr, MD, FACOG Subjective Doing well this morning she is walking, voiding, passing gas and eating without nausea or vomiting. She feels her bleeding is, "good". She is and pain is 2-3/10 and improved with pain medication. She had no questions. Review of Systems Review of Systems: Denies fever, chills, sweats. Denies shortness of breath, difficulty breathing, palpitations. admits feeling indigestion. Denies breast pain. Denies dysuria. Denies headache. Physical Exam Physical Exam: General: Alert, oriented. No acute distress. Cardiac: Regular rate and rhythm, no murmurs/rubs/gallops. Respiratory: Symmetrical chest rise. No respiratory distress. Abdomen: Soft, nontender, nondistended. Bowel sounds present. Uterus: Uterine fundus firm, palpable 1 cm below umbilicus. Lower Extremities: No lower extremity edema or swelling. No deep calf pain. Amanda's negative bilaterally. surgical incision w/ dressing intact, clean, dry. No warmth, erythema, discharge, around dressing. Results & Data ([facility]) Vital Signs (Past 12 Hours) Vital Signs Temp Pulse Resp BP Pulse Ox 03/08/20 00:30 36.7 C 97 H 18 144/71 H 96 03/07/20 19:30 36.9 C 105 H 18 124/85 97 Resident Activity Tracking Resident Involvement: Resident Care Provided Care Provided: [facility]
[2020-03-08] MEDS: OXYCODONE/ACETAMINOPHEN 5mg/325mg TAB PO PRN (06:13)
[2020-03-08] MEDS: IBUPROFEN 600 MG TAB PO PRN (06:13)
[2020-03-08 06:32] LABS: Hematocrit (blood only) 25.3 % (37-47); Hemoglobin 8.3 g/dL (12.0-16.0)
[2020-03-08] MEDS: SIMETHICONE 80 MG CHEW PO SCH (07:46)
[2020-03-08] MEDS: DOCUSATE SODIUM 100 MG CAP PO SCH (07:46)
[2020-03-08] MEDS: PRENATAL VITAMIN 1 TAB PO SCH (07:46)
--- NOTE | 2020-03-13 07:34 | Discharge Summary ---
Date of Service March 13, 2020 Admission HPI Per Admitting Provider 41 week induction who received cervical winter last pm. Winter fell out spontaneously. GBS - Obesity in Patient had a C/S for FTP Discharge Data Consultations 03/05/20 07:32 Consult Anesthesiology Stat Procedures Performed Operation Date: 03/05/20 21:00 Actual Procedures p Section in LD for failure to progress for [facility] at 2157 (Bilateral) - Yue Montanez MD, FACOG Hospital Course (1) delivery delivered: met criteria, uma Supervising Physician Co-Signing Physician Notes Resident Physician Supervision Note: I was present with Dr. Lund during the history and exam. I discussed the case with the resident and agree with the findings and plan as documented in the note. Any exceptions or clarifications are listed here: Patient desires d/c. RHIANNON dressing to be removed POD #7. Pt instructed on how to do it. F/U in 6 week for pp check Documented By: Ronak Marrero Jr, MD, [facility] C[facility] Level of Care Code None Diagnoses delivery delivered O82
== END 2020-03-08 11:15 | disposition home or self-care (01) | DRG 788 ==
LOC: 4S1 07:13 → 4S2 03-06 01:48

== ENCOUNTER 2025-01-02 05:26 | Inpatient (IN) ==
--- NOTE | 2024-12-15 16:20 | History & Physical Report ---
Date of Service December 15, 2024 Assessment & Plan (1) Previous delivery affecting , antepartum: (2) with 39 completed weeks gestation: Plan Plan for repeat c/s. The risks of surgery were discussed with the patient including the risks of anesthesia, bleeding requiring transfusion, infection, poor wound healing, urinary retention, damage to surrounding structures including bowels, bladder, vessels, nerves and ureters that may require further surgery, hospitalization or intervention. The other risks of any surgery were discussed including heart attack, blood clots, stroke or . Discussed potential risk of injury to the baby. Consent reviewed and signed. Surgery planned for 01/02/25. History of Present Illness Chief Complaint: presents for repeat c/s Primary Care Provider: NO PCP Patient is a 29yowf with IUp at 39+ weeks who presents to labor and delivery for scheduled repeat c/s. c/s at 41 weeks in first for FTP of 7# baby. Declines trial of labor. and Delivery Plans Previous Section affecting C/S SCHEDULED FOR 01/02/[address] FIGUEROA Obesity (BMI 40 and higher @ beginning of ) *Growth US @ 32wks *Weekly NSTs @ 34wks *BMI 40 or greater offer detailed/level II anatomy at [facility] *BMI 40 or above offer delivery by [facility]. *BMI 50 or greater scheduled detailed/level II anatomy at [facility] Hep B Non-Immune *Recommend vaccine OB Labs: Blood Type O Positive 06/06/24 Antibody Screen NEGATIVE 06/06/24 Hgb 10.3 g/dl (12.0-16.0) L 11/07/24 Hct 32.3 % (37.0-47.0) L 11/07/24 MCV 82.9 fL (80.0-100.0) 06/06/24 Plt Count 208 K/uL (130-400) 06/06/24 Rubella IgG Antibody Immune (Immune) 06/06/24 RPR Nonreactive (Nonreactive) 11/10/23 Treponema pallidum Ab Negative (Negative) 11/07/24 Hep Bs Antigen Negative (Negative) 06/06/24 Hep Bs Antigen NON-REACTIVE (NON-REACTIVE) 11/10/23 Hepatitis C Antibody Negative (Negative) 06/06/24 Hepatitis C Ab (EIA) NON-REACTIVE (NON-REACTIVE) 11/10/23 HIV 1&2 Ab/P24 Ag 4thGn Negative (Negative) 06/06/24 HIV (1&2) Ag & Ab Conf NON-REACTIVE (NON-REACTIVE) 11/10/23 Glucose 1 Hr 50 gm 117 mg/dl (70-130) 11/07/24 OB Optional Labs: Chlamydia trachomatis RNA Not Detected (NotDetected) 06/06/24 Neisseria gonorrhoeae RNA Not Detected (NotDetected) 06/06/24 Labs Reviewed: No labs to pull forward from prior , [facility] declines genetics and carrier testing[facility] Allergies Allergy/AdvReac Type Severity Reaction Status Date / Time No Known Drug Allergies Allergy Verified 12/15/24 09:32 Home Medications Medication Instructions Recorded Confirmed Type prenat.vits,august,[id number] 1 tab PO DAILY 10/14/19 12/15/24 History Patient History Medical History Miscarriage Varicella vaccine No known health problems Surgical History Status post dilation and curettage Hx of section S/P wisdom tooth extraction Family History Father Hypertension Grandmother (Maternal) Diabetes Grandfather No problems noted. Grandmother (Paternal) Stroke Grandfather (Paternal) Diabetes Family/Other Breast cancer cousin on mothers side Family/Other Colorectal cancer male cousin on mothers side Denies family history of Ovarian cancer Prostate cancer Social History Smoking Status: Never smoker Second Hand Exposure: No; Do You Dip or Chew Tobacco: No; Hx Alcohol Use: No Hx Substance Use: No Preferred Language: Paragu[place] Communication Ability: Effective Visual Impairment: No Limitations Waiter/Waitress Tavern Required: No Beliefs That Will Affect Care: None marital status: marital status details: Spouse Irvin Nguyen (31) [phone] Current Living Situation: Spouse and Family Current Living Situation Comment: lives with spouse, son, 1dog, 1cat, spouse to change litter current occupational status: employed current occupation: insurance healthcare consultant @ [employer] Feels Safe at Home: Yes Assistive Devices: None OB History Past Pregnancies Del. Date GA wks Lbr Lgth wt Sex Type del Anes Place Del Prov ? 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
--- NOTE | 2024-12-21 13:17 | Anesthesiology Consultation ---
Date of Service December 21, 2024 Assessment & Plan (1) Encounter for pre-operative examination: Chart Review Chart Review: entry level buyer initiated -Infectious Disease screening: Per PAT nursing assessment on 12/21/24. No known infectious disease contacts in past 10 days. No recent travel outside the country. Mild congestion starting 12/18/24- symptom onset >11 days from day of procedure- as long as symptoms are resolved by day of procedure patient can proceed without additional testing/precautions D&C 12/16/23= Done under GA with LMA #4 IGel Emergency 03/05/20= Epidural bolused (Labor epidural placed 03/05/20 at L3-4 with 1 attempt) History Surgery Operation Date: 01/02/25 07:30 Proposed Procedures p Section (Delivery of Baby Through Abdominal Incision) - Alfreda Hernandez MD, FACOG Height/Weight Height: 5 ft 4 in Weight: 122.016 kg Allergies Allergy/AdvReac Type Severity Reaction Status Date / Time No Known Drug Allergies Allergy Verified 12/21/24 12:08 Medications Home Medications Medication Instructions Recorded Confirmed Last Taken prenat.vits,august,qwi-ggeh-afpyo 1 tab PO DAILY 10/14/19 12/21/24 12/13/23 Past Medical History Medical History Acid reflux with , mild History of COVID-19 (2020) no hosp; resolved Miscarriage hx Past Family History Family History Father Hypertension Grandmother (Maternal) Diabetes Grandfather No problems noted. Grandmother (Paternal) Stroke Grandfather (Paternal) Diabetes Family/Other Breast cancer cousin on mothers side Family/Other Colorectal cancer male cousin on mothers side Other No family history of adverse response to anesthesia Denies family history of Ovarian cancer Prostate cancer Past Surgical History Surgical History Hx of section - 03/05/20- due to failure to progress - Emergency 03/05/20= Epidural bolused (Labor epidural placed 03/05/20 at L3-4 with 1 attempt) S/P wisdom tooth extraction Status post dilation and curettage Social History Smoking Status: Never smoker Do You Dip or Chew Tobacco: No Hx Alcohol Use: No Hx Substance Use: No substance use type: does not use Lab Results Anesthesia Preop Results Results Anesthesia Widget: Hgb 10.3 g/dl (12.0-16.0) L 11/07/24 Hct 32.3 % (37.0-47.0) L 11/07/24
[2025-01-02] MEDS ORDERED: SODIUM CHLORIDE 0.9% 100 ML IV PRN (05:40)
[2025-01-02] MEDS ORDERED: SODIUM CHLORIDE 0.9% 50 ML IV PRN (05:40)
[2025-01-02] MEDS: LACTATED RINGER'S 1,000 ML IV SCH ×2 (05:54→06:42)
[2025-01-02 06:13] LABS: Hematocrit (blood only) 28.6 % (37.0-47.0); Hemoglobin 8.9 g/dl (12.0-16.0); Mean Corpuscular Hemoglobin 23.7 pg (25.0-34.0); Mean Corpuscular Hgb Conc 31.1 g/dL (32.0-36.0); Mean Corpuscular Volume 76.1 fL (80.0-100.0); Mean Platelet Volume 12.4 fL (9.4-12.4); Platelet Count 163 K/uL (130-400); RDW Coefficient of Variation 15.9 % (11.5-14.5); RDW Standard Deviation 43.3 fL (36.4-46.3); Red Blood Count 3.76 M/uL (4.20-5.40); White Blood Count 7.52 K/ul (4.8-10.8)
[2025-01-02] MEDS ORDERED: OXYTOCIN 10 UNITS/ML VIAL ONE (06:18)
[2025-01-02] MEDS ORDERED: fentaNYL citrate PF 100 MCG/2 ML VIAL ONE (06:18)
[2025-01-02] MEDS ORDERED: ONDANSETRON INJ 2 MG/ML 2 ML VIAL ONE (06:18)
[2025-01-02] MEDS ORDERED: DEXAMETHASONE SOD INJ 4 MG/ML VIAL ONE (06:18)
[2025-01-02] MEDS ORDERED: KETOROLAC 30 MG/ML VIAL ONE (06:18)
[2025-01-02] MEDS ORDERED: PHENYLEPHRINE HCL 25 MG/250 ML NSS IV ONE (06:18)
[2025-01-02] MEDS ORDERED: MoRPHine SULFATE PF 1 MG/ML 10 ML AMP/VIAL ONE (06:18)
[2025-01-02] MEDS: ACETAMINOPHEN 500 MG TAB PO SCH (06:20)
[2025-01-02] MEDS: CITRIC ACID/SODIUM CITRATE 15 ML UDC PO SCH (07:04)
[2025-01-02] MEDS: ceFAZolin 3000MG 3,000 MG/72.5 ML BAG IV SCH (07:14)
[2025-01-02] MEDS ORDERED: NALBUPHINE HCL INJ 10 MG/ML AMP IV PRN (07:37)
[2025-01-02] MEDS ORDERED: NALOXONE HCL 0.4 MG/1 ML VIAL/CARP IV PRN (07:37)
[2025-01-02] MEDS ORDERED: NALOXONE HCL 1 MG in SODIUM CHLORIDE 0.9% 1,000 ML IV PRN (07:37)
[2025-01-02] MEDS ORDERED: ePHEDrine sulfate 50 MG/ML AMP IV PRN (07:37)
[2025-01-02] MEDS ORDERED: MoRPHine SULFATE PF 1 MG/ML 10 ML AMP/VIAL INT SPINAL ONE (07:37)
[2025-01-02] MEDS ORDERED: diphenhydrAMINE 50 MG/ML VIAL IV PRN (07:37)
[2025-01-02] MEDS ORDERED: NALOXONE HCL 0.08 MG in SYRINGE 1.8 ML IV PRN (07:37)
[2025-01-02] MEDS ORDERED: DC INTRASPINAL MORPHINE SCH (07:45)
[2025-01-02] MEDS ORDERED: NO NARCOTICS OR SEDATIVES SCH (07:45)
[2025-01-02] MEDS ORDERED: OXYTOCIN 20 UNITS/1002ML LR IV ONE (08:10)
--- NOTE | 2025-01-02 08:38 | Operative Report ---
PG Post Operative Report Pre & Post Diagnosis Operation Date: 01/02/25 07:30 Pre-Op Diagnosis: IUP at Term; Desires Repeat Post-Op Diagnosis: Same;Delivery of a live male child at 0749 I identified the patient and participated in the time-out.: Yes Procedure Operation Date: 01/02/25 07:30 Actual Procedures pRepeat lower transverse Section - Alfreda Hernandez MD, FACOG Surgeon Alfreda Hernandez MD, FACOG Truck Spotter Shayne Elam, MS 2 Estimated Blood Loss 253 (QBL) Findings Consistent with Post-Op Diagnosis nl uterus , tubes, ovaries bilaterally viable male , cephalic, apgars 9/9. Fluids IVF--900 uop--200 Specimens none Drains winter Anesthesia Type Spinal Complications none Disposition Accompanied Patient To Recovery: No Disposition: L&D Indications Patient s a 29yo with iup at 39 4/7 who presents for repeat c/s. Description of Procedure The patient was taken to the operating room where she was identified verbally and by bracelet. She was seated on the operating table where a spinal a nesthetic was placed by anesthesia. She was then placed in the supine position with a leftward tilt. A Winter catheter was placed sterilely. the patient was prepped and draped in a normal standard fashion. the anesthetic was tested and found to be adequate. A time-out was held, identifying correct patient, procedure, positioning and preoperative antibiotics. There were no concerns. A Pfannenstiel skin incision was made with a knife and taken down to the underlying layer of fascia with the knife and Bovie electrocautery. Bleeding was attended to with the Bovie. The fascia was incised in the midline with the knife and taken out laterally with scissors. The superior edge of the fascial incision was grasped, elevated and the underlying layer of rectus muscle was taken off bluntly and with scissors. In a similar fashion, the inferior edge of the fascial incision was grasped, elevated and the underlying layer of rectus muscle was taken off bluntly and with scissors. The muscles were bluntly in the midline. The peritoneum was entered bluntly. The incision was then stretched. The bladder blade was placed. The vesicouterine peritoneum was identified, entered with scissors and taken out laterally with scissors. The bladder flap was created digitally A hysterotomy incision was scored with a knife and the incision was stretched superiorly and inferiorly with the o perator's fingers. The operators hand was placed into the incision and the head was delivered atraumatically via fundal pressure. No nuchal cord. The nose and mouth were bulb suctioned. the rest of the infant was then delivered without difficulty. The nose and mouth were again bulb suctioned. The cord was clamped and cut and the infant was then handed off to the awaiting conventions assistant for drying and attention. Cord blood and segment were obtained. The placenta was Manually extracted. The uterus was exteriorized and cleared of all clot and debris with moistened laparotomy sponges. The hysterotomy incision was repaired in two layers, the first in a running locked layer, the second in an imbricating layer. Hemostasis was noted to be good. Posterior cul-de-sac was irrigated and cleared of all clot and debris. The hysterotomy incision was again inspected and found to be hemostatic. the uterus was reinteriorized. Hysterotomy incision was again inspected and 2 sutures needed for hemostasis. The fascia was then reapproximated with 0 Vicryl starting at the edges and meeting in the midline. The subcuticular tissues were copiously irrigated and bleeding was attended to with cautery. The skin was then closed with 4-0 Vicryl in a subcuticular fashion. All sponge, lap and needle counts were correct x 2. The patient tolerated the procedure well and was taken to recovery room in stable condition. I attest to the content of the Intraoperative Record and any orders documented therein. Any exceptions are noted below. OB Procedure Charges 98541
[2025-01-02] MEDS ORDERED: HYDROCORTISONE ACETATE 25 MG SUPP PR PRN (08:41)
[2025-01-02] MEDS ORDERED: BENZOCAINE 20% SPRY 85 APPLN/85 GM CAN EXT PRN (08:41)
[2025-01-02] MEDS ORDERED: SENNA 8.6 MG TAB PO PRN (08:41)
[2025-01-02] MEDS ORDERED: MAGNESIUM HYDROXIDE SUSP 30 ML UDC PO PRN (08:41)
[2025-01-02] MEDS ORDERED: DIPHTHER/TETAN/PERTUS Vaccine (Tdap, Adol/Adult) 0.5mL IM ONE (08:41)
[2025-01-02] MEDS ORDERED: CALCIUM CARBONATE 500 MG CHEWABLE TAB PO PRN (08:41)
[2025-01-02] MEDS ORDERED: LACTATED RINGER'S 1,000 ML IV SCH (08:45)
[2025-01-02] MEDS: OXYTOCIN 20 UNITS/LR 1,002 ML IV SCH (08:57)
--- NOTE | 2025-01-02 09:38 | Anesthesiology Progress Note ---
Date of Service January 02, 2025 Anesthesia Post Procedure Vital Signs Vital Signs: Temp Pulse Resp BP Pulse Ox 01/02/25 09:33 90 98 01/02/25 09:30 16 01/02/25 09:30 77 127/60 01/02/25 09:28 85 97 01/02/25 09:23 99 H 98 01/02/25 09:20 98.1 F 16 01/02/25 09:20 85 127/59 L 01/02/25 09:18 83 97 01/02/25 09:13 83 96 01/02/25 09:10 16 01/02/25 09:10 78 128/70 01/02/25 09:08 82 98 01/02/25 09:03 84 96 01/02/25 09:00 16 01/02/25 09:00 86 128/63 01/02/25 08:58 85 95 01/02/25 08:53 89 95 01/02/25 08:50 16 01/02/25 08:50 76 125/59 L 01/02/25 08:48 74 99 01/02/25 08:43 89 95 01/02/25 08:40 98.2 F 16 01/02/25 08:40 99 H 139/64 01/02/25 08:38 94 01/02/25 08:38 87 01/02/25 08:38 83 94 01/02/25 08:33 100 01/02/25 08:33 78 01/02/25 08:33 82 92 01/02/25 08:28 97 01/02/25 08:28 85 01/02/25 08:28 81 125/68 01/02/25 07:22 16 01/02/25 07:22 16 01/02/25 07:02 98.6 F 16 01/02/25 05:49 84 133/77 01/02/25 05:44 98.6 F 18 Transfer of Care Handoff Completed per policy Notes Mental Status: alert / awake / arousable and participated in evaluation Patient Amnestic to Procedure: No Nausea / Vomiting: adequately controlled Pain: adequately controlled Airway Patency, RR, SpO2: stable & adequate BP & HR: stable & adequate Hydration State: stable & adequate Neuraxial Anesthesia: was administered and sensory block is resolving Anesthetic Complications: no major complications apparent and Pt Satisfied with anesthetic care
[2025-01-02] MEDS: ONDANSETRON INJ 2 MG/ML 2 ML VIAL IV PRN (10:23)
[2025-01-02] MEDS: HYDROmorphone INJ 0.5 MG/0.5 ML SYR IV PRN (11:19)
[2025-01-02] MEDS: METOCLOPRAMIDE HCL INJ 5 MG/ML 2 ML VIAL IV PRN (12:36)
[2025-01-02] MEDS: SIMETHICONE 80 MG CHEW PO SCH (13:50)
[2025-01-02] MEDS: ACETAMINOPHEN 325 MG TAB PO SCH (13:50)
[2025-01-02] MEDS: KETOROLAC 30 MG/ML VIAL IV SCH (13:50)
[2025-01-02] MEDS: PROMETHAZINE 6.25 MG/50.25 ML BAG IV PRN (16:48)
[2025-01-02] MEDS: LACTATED RINGER'S 500 ML IV ONE ×2 (17:12→20:14)
[2025-01-02] MEDS ORDERED: ACETAMINOPHEN 325 MG TAB PO SCH (20:00)
[2025-01-02] MEDS: DOCUSATE SODIUM 100 MG CAP PO SCH (20:15)
[2025-01-03] MEDS ORDERED: diphenhydrAMINE 50 MG/ML VIAL IV PRN (01:38)
[2025-01-03] MEDS ORDERED: diphenhydrAMINE Capsule 25 MG CAP PO PRN (01:38)
[2025-01-03] MEDS ORDERED: PROMETHAZINE 12.5 MG/50.5 ML BAG IV PRN (01:38)
[2025-01-03] MEDS ORDERED: HYDROmorphone INJ 0.5 MG/0.5 ML SYR IV PRN (01:38)
[2025-01-03] MEDS ORDERED: ONDANSETRON INJ 2 MG/ML 2 ML VIAL IV PRN (01:38)
[2025-01-03 04:56] VITALS: O2SAT 99
[2025-01-03 06:23] LABS: Basophils # (auto) 0.03 K/uL (0.00-0.20); Basophils % (auto) 0.3 %; Eosinophils # (auto) 0.03 K/uL (0.00-0.50); Eosinophils % (auto) 0.3 %; Hematocrit (blood only) 24.5 % (37.0-47.0); Hemoglobin 7.5 g/dl (12.0-16.0); Immature Granulocytes # (auto) 0.06 K/uL (0.01-0.20); Immature Granulocytes % (auto) 0.6 %; Lymphocytes # (auto) 2.26 K/uL (1.20-3.40); Lymphocytes % (auto) 23.3 %; Mean Corpuscular Hemoglobin 23.6 pg (25.0-34.0); Mean Corpuscular Hgb Conc 30.6 g/dL (32.0-36.0); Mean Platelet Volume 12.9 fL (9.4-12.4); Monocytes # (auto) 0.93 K/uL (0.11-0.59); Monocytes % (auto) 9.6 %; Neutrophils # (auto) 6.38 K/uL (1.40-6.50); Neutrophils % (auto) 65.9 %; Platelet Count 147 K/uL (130-400); RDW Standard Deviation 44.6 fL (36.4-46.3); Red Blood Count 3.18 M/uL (4.20-5.40); White Blood Count 9.69 K/ul (4.8-10.8)
[2025-01-03 07:03] LABS: Polychromasia 1+
--- NOTE | 2025-01-03 08:00 | Obstetrical Progress Note ---
Date of Service January 03, 2025 Assessment & Plan (1) Previous delivery affecting , antepartum: Plan 30 years at 39+4 week POG. # 1 POD following Delivery Both mom and baby doing well. Continue care as per protocol. Encouraged nursing with mother's milk. Encouraged ambulation. Encouraged deep breathing. Admission and Anticipated Discharge Date Admission Date: January 02, 2025 Supervising Physician Co-Signing Physician Notes Resident Physician Supervision Note: I interviewed and examined the patient. Discussed with Dr. Sims and agree with findings and plan as documented in the note. Any exceptions or clarifications are listed here: Doing well. Appropriate drop in Hgb, will monitor. Routine pod 1 care. Documented By: Alfreda Hernandez MD, FACOG Subjective 30 years at 39+4 week POG. # 1 POD following delivery No active complains Both mom and baby doing well. Mom Lying comfortable on bed. Pain: Mild, intermittent, manageable on painkillers. Lochia: Moderate Diet: Regular OB diet Gas: Not aware of passing, but no abdominal distension Peeing: Passed Urine after winter's removal Ambulation: to Bathroomwithout any complication Answered her queries. Review of Systems Review of Systems: As per HPI Physical Exam Physical Exam: General: Alert and oriented. No acute distress. CVS: S1 S2+ No murmurs, regular rhythm. Respiratory: CTA bilaterally. No rhonchi, wheezes, or crackles. No increased work of breathing. Abdomen: Bowel sound +. Soft, nontender Uterus: Fundus firm and palpable few cm below the umbilicus. Incision site looks healthy: Dry, No swelling, Erythema Lower extremities: No LE edema. No deep calf pain. Results & Data Vital Signs (Past 12 Hours) Vital Signs Temp Pulse Resp BP Pulse Ox O2 Del Method 01/03/25 04:35 36.7 C 86 16 117/77 Room Air 01/03/25 01:00 16 99 01/03/25 00:00 18 98 01/02/25 23:56 36.5 C 80 16 117/79 98 Room Air 01/02/25 23:47 16 99 01/02/25 22:00 18 100 01/02/25 21:00 16 98 01/02/25 20:30 14 98 01/02/25 20:30 36.7 C 80 14 118/78 98 Room Air
[2025-01-03] MEDS: PRENATAL VITAMIN 1 TAB PO SCH (08:28)
[2025-01-03] MEDS: FERROUS SULFATE 325 MG TAB PO SCH (08:28)
[2025-01-03] MEDS: INFLUENZA VACC TS2024-25(6m+)/PF (IIV3) 0.5mL Syr IM ONE (11:52)
[2025-01-03] MEDS: oxyCODONE HCL IR 5 MG TAB (IMMEDIATE RELEASE) PO PRN (12:33)
[2025-01-03] MEDS ORDERED: KETOROLAC 30 MG/ML VIAL IV PRN (14:00)
[2025-01-03] MEDS: IBUPROFEN 600 MG TAB PO SCH (14:12)
[2025-01-03] MEDS: bisacodyL 5 MG TABEC PO SCH (20:25)
[2025-01-04 07:34] LABS: Hematocrit (blood only) 25.1 % (37.0-47.0); Hemoglobin 7.8 g/dl (12.0-16.0)
--- NOTE | 2025-01-04 07:46 | Obstetrical Progress Note ---
Date of Service January 04, 2025 Assessment & Plan (1) Previous delivery affecting , antepartum: Plan 30 years at 39+4 week POG. # 2 POD following Delivery Both mom and baby doing well. Feels ready to go home today Discharge today Admission and Anticipated Discharge Date Admission Date: January 02, 2025 Supervising Physician Co-Signing Physician Notes Resident Physician Supervision Note: I was present with Dr. Sims during the history and exam. I discussed the case with the resident and agree with the findings and plan as documented in the note. Any exceptions or clarifications are listed here: POD2 doing well. DC home today, followup 6w in office. Reviewed postop instructions. Documented By: June Camacho, DO Subjective 30 years at 39+4 week POG. # 2 POD following delivery No active complains Both mom and baby doing well. Mom Lying comfortable on bed. Pain: Mild, intermittent, manageable on painkillers. Lochia: Moderate Diet: Regular OB diet Bowel movement: Had her bowel movement today morning Gas: Aware of passing, no abdominal distension Peeing: Passed Urine after winter's removal Ambulation: to Bathroom without any complication Answered her queries. Review of Systems Review of Systems: As per HPI Physical Exam Physical Exam: General: Alert and oriented. No acute distress. CVS: S1 S2+ No murmurs, regular rhythm. Respiratory: CTA bilaterally. No rhonchi, wheezes, or crackles. No increased work of breathing. Abdomen: Bowel sound +. Soft, nontender Uterus: Fundus firm and palpable few cm below the umbilicus. Incision site looks healthy: Dry, No swelling, Erythema Lower extremities: No LE edema. No deep calf pain. Results & Data Vital Signs (Past 12 Hours) Vital Signs Temp Pulse Resp BP O2 Del Method 01/03/25 23:45 36.8 C 85 18 129/85 Room Air 01/03/25 20:15 36.7 C 89 16 137/84 Room Air
[2025-01-04] MEDS ORDERED: bisacodyL 10 MG SUPP PR PRN (08:31)
[2025-01-04 09:24] VITALS: PULSE 82; RESP 16; TEMP 97.5
[2025-01-04 09:54] VITALS: BP 129/85
[2025-01-04] MEDS ORDERED: ACETAMINOPHEN 325 MG TAB PO PRN ×2 (14:00→20:00)
[2025-01-04] MEDS ORDERED: IBUPROFEN 600 MG TAB PO PRN (14:00)
--- NOTE | 2025-01-05 08:52 | Discharge Summary ---
Date of Service January 05, 2025 Admission HPI Per Admitting Provider Patient is a 29yowf with IUp at 39+ weeks who presents to labor and delivery for scheduled repeat c/s. c/s at 41 weeks in first for FTP of 7# baby. Declines trial of labor. and Delivery Plans Previous Section affecting C/S SCHEDULED FOR 01/02/[address] FIGUEROA Obesity (BMI 40 and higher @ beginning of ) *Growth US @ 32wks *Weekly NSTs @ 34wks *BMI 40 or greater offer detailed/level II anatomy at [facility] *BMI 40 or above offer delivery by [facility]. *BMI 50 or greater scheduled detailed/level II anatomy at [facility] Hep B Non-Immune *Recommend vaccine OB Labs: Blood Type O Positive 06/06/24 Antibody Screen NEGATIVE 06/06/24 Hgb 10.3 g/dl (12.0-16.0) L 11/07/24 Hct 32.3 % (37.0-47.0) L 11/07/24 MCV 82.9 fL (80.0-100.0) 06/06/24 Plt Count 208 K/uL (130-400) 06/06/24 Rubella IgG Antibody Immune (Immune) 06/06/24 RPR Nonreactive (Nonreactive) 11/10/23 Treponema pallidum Ab Negative (Negative) 11/07/24 Hep Bs Antigen Negative (Negative) 06/06/24 Hep Bs Antigen NON-REACTIVE (NON-REACTIVE) 11/10/23 Hepatitis C Antibody Negative (Negative) 06/06/24 Hepatitis C Ab (EIA) NON-REACTIVE (NON-REACTIVE) 11/10/23 HIV 1&2 Ab/P24 Ag 4thGn Negative (Negative) 06/06/24 HIV (1&2) Ag & Ab Conf NON-REACTIVE (NON-REACTIVE) 11/10/23 Glucose 1 Hr 50 gm 117 mg/dl (70-130) 11/07/24 OB Optional Labs: Chlamydia trachomatis RNA Not Detected (NotDetected) 06/06/24 Neisseria gonorrhoeae RNA Not Detected (NotDetected) 06/06/24 Labs Reviewed: No labs to pull forward from prior , [facility] declines genetics and carrier testing--[facility] declines quad and afp--[facility] Discharge Data Consultations 01/02/25 05:31 Consult Anesthesiology Stat Procedures Performed Operation Date: 01/02/25 07:30 Actual Procedures p Section - Alfreda Figueroa MD, [facility] Hospital Course (1) Previous delivery affecting , antepartum: Plan Patient was admitted and underwent a repeat lower transverse c/s without issues. Postoperative course was uncomplicated--tolerated a regular diet, ambulated without difficulty, voided after removal of her García and tolerated pain with po meds. She was d/c on postop day 2. d/c h/h was 7.8/25.1. hgb on admission was 8.9. EBL in or was 253cc and in pp recovery 600cc. She was d/c home with pnv and iron. f/u in the office in 6 weeks. Coding Level of Care Code None Diagnoses Previous delivery affecting , antepartum O34.219
== END 2025-01-04 10:50 | disposition home or self-care (01) | DRG 787 ==
LOC: 4S1 05:26 → EDSTATUS 07:30 → 4E2 11:29